=== PATIENT | male | born 2005 | race African-American/Black ===

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

== ENCOUNTER 2023-08-02 22:18 | Inpatient (IN) ==
[2023-08-02 22:58] LABS: Appearance Urine Clear (Clear); Bacteria Urine Automated Negative (Negative); Bilirubin Urine Negative (Negative); Blood Urine Negative (Negative); Color Urine Dark Yellow; Glucose Urine UA Negative (Negative); Ketones Urine Trace (Negative); Leukocyte Esterase Urine Negative (Negative); Nitrite Urine Negative (Negative); Protein Urine Trace (Negative); RBC Urine Automated 0-4 /hpf (0-4); Specific Gravity Urine 1.035 (1.000-1.030); Urobilinogen Urine Negative (Negative); pH Urine 5.5 (4.5-7.5)
[2023-08-02] MEDS ORDERED: LIDOCAINE 1% LOCAL 20 ML VIAL INFIL ONE (22:58)
[2023-08-02] MEDS ORDERED: LIDOCAINE 1% LOCAL 20 ML VIAL ONE (22:59)
[2023-08-02 23:05] LABS: Basophils # (auto) 0.02 K/uL (0.00-0.20); Basophils % (auto) 0.3 %; Eosinophils # (auto) 0.11 K/uL (0.00-0.50); Eosinophils % (auto) 1.8 %; Hematocrit (blood only) 38.7 % (42.0-52.0); Hemoglobin 12.9 g/dl (14.0-18.0); Immature Granulocytes # (auto) 0.01 K/uL (0.01-0.20); Immature Granulocytes % (auto) 0.2 %; Lymphocytes # (auto) 2.17 K/uL (1.20-3.40); Lymphocytes % (auto) 35.9 %; Mean Corpuscular Hemoglobin 28.7 pg (25.0-34.0); Mean Corpuscular Hgb Conc 33.3 g/dL (32.0-36.0); Mean Corpuscular Volume 86.2 fL (80.0-100.0); Mean Platelet Volume 9.5 fL (9.4-12.4); Monocytes # (auto) 0.76 K/uL (0.11-0.59); Monocytes % (auto) 12.6 %; Neutrophils # (auto) 2.98 K/uL (1.40-6.50); Neutrophils % (auto) 49.2 %; Platelet Count 320 K/uL (130-400); RDW Coefficient of Variation 12.2 % (11.5-14.5); RDW Standard Deviation 38.8 fL (36.4-46.3); Red Blood Count 4.49 M/uL (4.70-6.10); White Blood Count 6.05 K/ul (4.8-10.8)
--- NOTE | 2023-08-02 23:08 | Emergency Department Note ---
Impression & Plan Major depressive disorder with current active episode, Suicide attempt, Laceration of neck, Laceration of forearm, left ED Provider Note Name: KAREN MEADOWS Age: 18 Sex: M Arrives Via: Ambulance Informant: Patient, EMS, Nursing ED Provider: Lowell Vaughn MD Chief Complaint: Suicide attempt Impression: As per impressions above Medical Decision Makin-year-old male arrives following a suicide attempt. He plan this this evening even taking aspirin prior to cutting right neck and left wrist. Unable to cut deep enough and eventually EMS was called. Lacerations are somewhat gaping but not deep enough to cut below skin layers. There is no indication for CT imaging of the neck for deeper structure evaluation. Lacerations were repaired by me and I discussed the importance of wound management monitoring and then suture removal in about 7 days. Wounds are clean and thus I do not feel starting antibiotics are necessary at this time. He is medically cleared. Wagener level is low he did just start this a few days ago and they have been increasing the dose. He is agreeable to inpatient care on a 201 basis and is voluntary signing himself in. With this in mind 302 that had been started by police was declined with plan for voluntary inpatient management. Prior Medical Record and Triage/Nursing Notes reviewed by Me External chart reviewed by me including previous psychiatric hospital stays at this location. Differentials:Mood disorder, infection, hypoglycemia, electrolyte abnormalities, cardiac sources, intracerebral event, toxicologic, trauma, neurologic, as well as other pathologies. Vital Signs: reviewed and remarkable for no significant abnormalities Interventions: Lidocaine subcu for suturing Labs:Reviewed and remarkable for no significant abnormalities Consults:Mental Health Case Management - Agree with plan for hospitalization Plan: Disposition:Hospitalization on Condition: Good History of Present Illness:18-year-old male arrives for evaluation following a suicide attempt. Patient notes worsening depression and anxiety with diff iculties during classes in school. Patient attempted to kill himself this evening. He took 2 doses of full-strength aspirin and then used a razor to cut his right neck and left forearm. Patient denies other attempts at harming himself. EMS was contacted and he was brought in for further evaluation. No interventions prior to arrival. Patient did use his home Adderall prior to arrival. He denies any recent drug or alcohol use. Admits previous hospitalization including at this location for psychiatric disease. Denies any falls, trauma, injuries. Denies anyone else harming him. 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 From [facility]. Home Medications:Trazodone, Vyvanse, duloxetine, lithium, hydroxyzine Allergies:No known drug allergies Vitals:Blood Pressure: 118/70, Pulse 64, RR 18, T 36.9C, O2 98% on RA Physical Exam: GENERAL: Patient is sad appearing and in minimal distress. NECK: 2 cm laceration not through to fascia but is somewhat gapping with venous oozing bleeding, no hematoma, no surrounding crepitus/TTP. No evidence of pene tration of laceration when probbing and evaling. No masses appreciated, nomeningismus, trachea is midline. RESPIRATORY: No dyspnea. Clear to auscultation and equal bilaterally. No wheeze, no rhonchi. CARDIOVASCULAR: Regular rate and rhythm.No murmurs, rubs, gallops appreciated. EXTREMITIES: Normal motion all extremities, no cyanosis, no edema. NEUROLOGIC: Alert and oriented, no acute motor or sensory deficits, no focal weakness, cranial nerves grossly intact. SKIN: Left forearm laceration. Vertical laceration down mid forearm surrounding by smaller abrasions. Abrasion is not deep but is somewhat gapping as well. No active bleeding. Distal n/v intact. No rash, no jaundice, no diaphoresis. PSYCH: Appropriate GCS: 15 Procedures: Laceration Repair: Location: right neck Complexity: Simple Length: 2 cm Verbal consent was obtained after the risks and benefits were explained, including but not limited to bleeding, scarring, infection, pain, and bone/joint/nerve damage. At this time, the risks of the procedure are less than the risks of NOT performing the procedure. A time out was taken and the correct patient and site identified. The skin was prepped with betadine. The target area was anesthetized with 2 ml of 1% lidocaine without epinephrine. Copious irrigation was performed using betadine/saline. The skin was re-prepped with betadine and a sterile field set. The wound was explored for foreign bodies and none found. Examination revealed no injury to deep structures such as tendons, bone, or significant blood vessels. Debridement was not performed. The wound edges were approximated using 2, 4-0 simple interrupted nylon sutures. He mostasis and excellent approximation was achieved. Antibacterial ointment and a sterile dressing applied by nursing. Detailed wound care instructions and signs and symptoms of infection reviewed with the patient. No complications and the patient tolerated the procedure well. I personally performed the entire procedure. Laceration Repair: Location: vertical left forearm Complexity: Simple Length: 7 cm Verbal consent was obtained after the risks and benefits were explained, including but not limited to bleeding, scarring, infection, pain, and bone/joint/nerve damage. At this time, the risks of the procedure are less than the risks of NOT performing the procedure. A time out was taken and the correct patient and site identified. The skin was prepped with betadine. The target area was anesthetized with 5 ml of 1% lidocaine without epinephrine. Copious irrigation was performed using betadine/saline. The skin was re-prepped with betadine and a sterile field set. The wound was explored for foreign bodies and none found. Examination revealed no injury to deep structures such as tendons, bone, or significant blood vessels. Debridement was not performed. The wound e dges were approximated using 7, 4-0 simple interrupted nylon sutures. Hemostasis and excellent approximation was achieved. Antibacterial ointment and a sterile dressing applied by nursing. Detailed wound care instructions and signs and symptoms of infection reviewed with the patient. No complications and the patient tolerated the procedure well. I personally performed the entire procedure. Lowell Vaughn MD Past Med/Surg History Medical History Depression Depression with suicidal ideation Suicidal ideation Surgical History No pertinent past surgical history Social History Smoking Status: Unknown if ever smoked Hx Alcohol Use: No Hx Substance Use: No Preferred Language: Vietnamese Communication Ability: Effective General Internist Required: No Beliefs That Will Affect Care: None current occupational status: student Feels Safe at Home: Yes Gender Identity: Male Assistive Devices: None Allergies Allergies Allergy/AdvReac Type Severity Reaction Status Date / Time No Known Allergies Allergy Unverified 01/15/23 15:54 Home Meds Home Medications Medication Instructions Recorded Confirmed clonazepam 0.5 mg tablet 0.5 mg PO BID PRN Anxiety 08/02/23 08/02/23 dextroamphetamine-amphetamine ER 20 mg PO DAILY 08/02/23 08/02/23 20 mg 24hr capsule,extend release (Adderall XR) lithium carbonate 300 mg capsule 300 mg PO BID 08/02/23 08/02/23 mirtazapine 15 mg tablet 15 mg PO DAILY 08/02/23 08/02/23 vortioxetine 20 mg tablet 20 mg PO DAILY 08/02/23 08/02/23 (Trintellix) Results & Data (ED) Vital Signs Vital Signs - 24 hr 08/02/23 22:34 08/03/23 00:44 Temperature 36.9 C Temperature Source Oral Pulse Rate 64 Pulse Rate [Apical] 64 Pulse Rhythm [Apical] Regular Respiratory Rate 18 16 Respiratory Depth Normal Blood Pressure 118/70 Blood Pressure [Right Arm] 108/52 L Blood Pressure Mean 86 Blood Pressure Mean [Right Arm] 70 Pulse Oximetry 98 98 Oxygen Delivery Method Room Air Room Air Sepsis Recent Fever Within 48 Hours No Sepsis New/Unexplained Change in Mental Status No Sepsis Action Taken by Nursing No Action Required Laboratory Data 08/02/23 22:49 08/02/23 22:49 Lab Results 08/02/23 08/02/23 08/02/23 Range/Units 22:44 22:44 22:44 WBC (4.8-10.8) K/ul RBC (4.70-6.10) M/uL Hgb (14.0-18.0) g/dl Hct (42.0-52.0) % MCV (80.0-100.0) fL MCH (25.0-34.0) pg MCHC (32.0-36.0) g/dL RDW Std Deviation (36.4-46.3) fL RDW Coeff of Annika (11.5-14.5) % Plt Count (130-400) K/uL MPV (9.4-12.4) fL Immature Gran % (Auto) % Neut % (Auto) % Lymph % (Auto) % Logan % (Auto) % Eos % (Auto) % Baso % (Auto) % Neut # (Auto) (1.40-6.50) K/uL Lymph # (Auto) (1.20-3.40) K/uL Logan # (Auto) (0.11-0.59) K/uL Eos # (Auto) (0.00-0.50) K/uL Baso # (Auto) (0.00-0.20) K/uL Immature Gran # (Auto) (0.01-0.20) K/uL Sodium (136-145) mmol/L Potassium (3.5-5.1) mmol/L Chloride (98-107) mmol/L Carbon Dioxide (21-32) mmol/L Anion Gap (3-11) BUN (6-23) mg/dl Creatinine (0.6-1.4) mg/dl Est Cr Clr Drug Dosing ml/min Est GFR ( Amer) ml/min Est GFR (Non-Af Amer) ml/min BUN/Creatinine Ratio (10-20) Glucose (70-99(Fasting)) mg/dl Calcium (8.6-10.3) mg/dl Total Bilirubin (0.2-1.0) mg/dl AST (13-39) U/L ALT (7-52) U/L Alkaline Phosphatase (34-104) U/L Total Protein (6.0-8.3) gm/dl Albumin (3.4-5.0) gm/dl Globulin (2.5-4.0) gm/dl Albumin/Globulin Ratio (0.9-2) TSH (0.300-4.500) uIu/ml Urine Color Dark Yellow Urine Appearance Clear (Clear) Urine pH 5.5 (4.5-7.5) Ur Specific Crowell 1.035 H (1.000-1.030) Urine Protein Trace H (Negative) Urine Glucose (UA) Negative (Negative) Urine Ketones Trace H (Negative) Urine Blood Negative (Negative) Urine Nitrite Negative (Negative) Urine Bilirubin Negative (Negative) Urine Urobilinogen Negative (Negative) Ur Leukocyte Esterase Negative (Negative) Urine WBC (Auto) 1-5 (0-5) /hpf Urine RBC (Auto) 0-4 (0-4) /hpf U Hyaline Cast (Auto) 1-5 (0-5) /lpf U Epithel Cells (Auto) 5-10 H (0-5) /lpf Urine Bacteria (Auto) Negative (Negative) Salicylates (3.0-30) mg/dl Urine Opiates Screen Neg (Neg) Ur Methadone, Qual Neg (Neg) Acetaminophen (10-30) ug/ml Urine Barbiturates Neg (Neg) Ur Phencyclidine (PCP) Neg (Neg) U Amphetamin/Meth Scrn Pos H (Neg) MDMA (Ecstasy) Screen Neg (Neg) U Benzodiazepines Scrn Neg (Neg) Wagener (0.6-1.2) mmol/L Ur Cocaine Metabolite Neg (Neg) U Marijuana (THC) Screen Neg (Neg) Ethyl Alcohol mg/dL (<10.0) mg/dl SARS-CoV-2, RNA, NAAT NEGATIVE (NEGATIVE) 08/02/23 08/02/23 08/02/23 Range/Units 22:49 22:49 22:49 WBC 6.05 (4.8-10.8) K/ul RBC 4.49 L (4.70-6.10) M/uL Hgb 12.9 L (14.0-18.0) g/dl Hct 38.7 L (42.0-52.0) % MCV 86.2 (80.0-100.0) fL MCH 28.7 (25.0-34.0) pg MCHC 33.3 (32.0-36.0) g/dL RDW Std Deviation 38.8 (36.4-46.3) fL RDW Coeff of Annika 12.2 (11.5-14.5) % Plt Count 320 (130-400) K/uL MPV 9.5 (9.4-12.4) fL Immature Gran % (Auto) 0.2 % Neut % (Auto) 49.2 % Lymph % (Auto) 35.9 % Logan % (Auto) 12.6 % Eos % (Auto) 1.8 % Baso % (Auto) 0.3 % Neut # (Auto) 2.98 (1.40-6.50) K/uL Lymph # (Auto) 2.17 (1.20-3.40) K/uL Logan # (Auto) 0.76 H (0.11-0.59) K/uL Eos # (Auto) 0.11 (0.00-0.50) K/uL Baso # (Auto) 0.02 (0.00-0.20) K/uL Immature Gran # (Auto) 0.01 (0.01-0.20) K/uL Sodium 140 (136-145) mmol/L Potassium 3.5 (3.5-5.1) mmol/L Chloride 108 H (98-107) mmol/L Carbon Dioxide 26 (21-32) mmol/L Anion Gap 6 (3-11) BUN 10 (6-23) mg/dl Creatinine 0.82 (0.6-1.4) mg/dl Est Cr Clr Drug Dosing 175.0 ml/min Est GFR ( Amer) 147.5 ml/min Est GFR (Non-Af Amer) 127.3 ml/min BUN/Creatinine Ratio 12.2 (10-20) Glucose 84 (70-99(Fasting)) mg/dl Calcium 9.9 (8.6-10.3) mg/dl Total Bilirubin 0.3 (0.2-1.0) mg/dl AST 25 (13-39) U/L ALT 19 (7-52) U/L Alkaline Phosphatase 166 H (34-104) U/L Total Protein 7.9 (6.0-8.3) gm/dl Albumin 4.5 (3.4-5.0) gm/dl Globulin 3.4 (2.5-4.0) gm/dl Albumin/Globulin Ratio 1.3 (0.9-2) TSH 1.065 (0.300-4.500) uIu/ml Urine Color Urine Appearance (Clear) Urine pH (4.5-7.5) Ur Specific Crowell (1.000-1.030) Urine Protein (Negative) Urine Glucose (UA) (Negative) Urine Ketones (Negative) Urine Blood (Negative) Urine Nitrite (Negative) Urine Bilirubin (Negative) Urine Urobilinogen (Negative) Ur Leukocyte Esterase (Negative) Urine WBC (Auto) (0-5) /hpf Urine RBC (Auto) (0-4) /hpf U Hyaline Cast (Auto) (0-5) /lpf U Epithel Cells (Auto) (0-5) /lpf Urine Bacteria (Auto) (Negative) Salicylates < 3.0 L (3.0-30) mg/dl Urine Opiates Screen (Neg) Ur Methadone, Qual (Neg) Acetaminophen 8 L (10-30) ug/ml Urine Barbiturates (Neg) Ur Phencyclidine (PCP) (Neg) U Amphetamin/Meth Scrn (Neg) MDMA (Ecstasy) Screen (Neg) U Benzodiazepines Scrn (Neg) Wagener 0.1 L (0.6-1.2) mmol/L Ur Cocaine Metabolite (Neg) U Marijuana (THC) Screen (Neg) Ethyl Alcohol mg/dL (<10.0) mg/dl SARS-CoV-2, RNA, NAAT (NEGATIVE) 08/02/23 Range/Units 22:49 WBC (4.8-10.8) K/ul RBC (4.70-6.10) M/uL Hgb (14.0-18.0) g/dl Hct (42.0-52.0) % MCV (80.0-100.0) fL MCH (25.0-34.0) pg MCHC (32.0-36.0) g/dL RDW Std Deviation (36.4-46.3) fL RDW Coeff of Annika (11.5-14.5) % Plt Count (130-400) K/uL MPV (9.4-12.4) fL Immature Gran % (Auto) % Neut % (Auto) % Lymph % (Auto) % Logan % (Auto) % Eos % (Auto) % Baso % (Auto) % Neut # (Auto) (1.40-6.50) K/uL Lymph # (Auto) (1.20-3.40) K/uL Logan # (Auto) (0.11-0.59) K/uL Eos # (Auto) (0.00-0.50) K/uL Baso # (Auto) (0.00-0.20) K/uL Immature Gran # (Auto) (0.01-0.20) K/uL Sodium (136-145) mmol/L Potassium (3.5-5.1) mmol/L Chloride (98-107) mmol/L Carbon Dioxide (21-32) mmol/L Anion Gap (3-11) BUN (6-23) mg/dl Creatinine (0.6-1.4) mg/dl Est Cr Clr Drug Dosing ml/min Est GFR ( Amer) ml/min Est GFR (Non-Af Amer) ml/min BUN/Creatinine Ratio (10-20) Glucose (70-99(Fasting)) mg/dl Calcium (8.6-10.3) mg/dl Total Bilirubin (0.2-1.0) mg/dl AST (13-39) U/L ALT (7-52) U/L Alkaline Phosphatase (34-104) U/L Total Protein (6.0-8.3) gm/dl Albumin (3.4-5.0) gm/dl Globulin (2.5-4.0) gm/dl Albumin/Globulin Ratio (0.9-2) TSH (0.300-4.500) uIu/ml Urine Color Urine Appearance (Clear) Urine pH (4.5-7.5) Ur Specific Crowell (1.000-1.030) Urine Protein (Negative) Urine Glucose (UA) (Negative) Urine Ketones (Negative) Urine Blood (Negative) Urine Nitrite (Negative) Urine Bilirubin (Negative) Urine Urobilinogen (Negative) Ur Leukocyte Esterase (Negative) Urine WBC (Auto) (0-5) /hpf Urine RBC (Auto) (0-4) /hpf U Hyaline Cast (Auto) (0-5) /lpf U Epithel Cells (Auto) (0-5) /lpf Urine Bacteria (Auto) (Negative) Salicylates (3.0-30) mg/dl Urine Opiates Screen (Neg) Ur Methadone, Qual (Neg) Acetaminophen (10-30) ug/ml Urine Barbiturates (Neg) Ur Phencyclidine (PCP) (Neg) U Amphetamin/Meth Scrn (Neg) MDMA (Ecstasy) Screen (Neg) U Benzodiazepines Scrn (Neg) Wagener (0.6-1.2) mmol/L Ur Cocaine Metabolite (Neg) U Marijuana (THC) Screen (Neg) Ethyl Alcohol mg/dL < 10.0 (<10.0) mg/dl SARS-CoV-2, RNA, NAAT (NEGATIVE) Discharge Plan Visit Data Chief Complaint: Laceration/Cut (Suture/Dermabond) Stated Complaint: Mental Health/Lac to neck/wrist ED Provider: Lowell Vaughn Discharge Problem: Major depressive disorder with current active episode, Suicide attempt, Laceration of neck, Laceration of forearm, left Patient Disposition: Admitted As Inpatient Discharge Instructions Interventions: ED Discharge Assessment Last Done: 08/03/23 01:27 Major depressive disorder with current active episode Qualifiers: Major depression recurrence: recurrent Major depression episode severity: severe Psychotic features: without psychotic features Qualified Code(s): F33.2 - Major depressive disorder, recurrent severe without psychotic features Laceration of neck Qualifiers: Encounter type: initial encounter Qualified Code(s): S11.91XA - Laceration without foreign body of unspecified part of neck, initial encounter Laceration of forearm, left Qualifiers: Encounter type: initial encounter Qualified Code(s): S51.812A - Laceration without foreign body of left forearm, initial encounter
[2023-08-02 23:20] LABS: Albumin Globulin Ratio 1.3 (0.9-2); Albumin Level 4.5 gm/dl (3.4-5.0); BUN Creatinine Ratio 12.2 (10-20); Bilirubin,Total 0.3 mg/dl (0.2-1.0); Calcium 9.9 mg/dl (8.6-10.3); Est GFR (African American) 147.5 ml/min; Est GFR (Non-African American) 127.3 ml/min; Globulin 3.4 gm/dl (2.5-4.0); Potassium 3.5 mmol/L (3.5-5.1); Total Protein 7.9 gm/dl (6.0-8.3)
[2023-08-02 23:23] LABS: Lithium 0.1 mmol/L (0.6-1.2)
[2023-08-02 23:24] LABS: Amphetamines+Metham, Urine Pos (Neg); Barbiturates, Urine Neg (Neg); Benzodiazepine, Urine Neg (Neg); Cocaine, Urine Neg (Neg); MDMA (Ecstacy), Urine Neg (Neg); Methadone, Urine Neg (Neg); Opiate, Urine Neg (Neg); Phencyclidine, Urine Neg (Neg)
[2023-08-02 23:50] LABS: Thyroid Stimulating Hormone 1.065 uIu/ml (0.300-4.500)
[2023-08-02 23:54] LABS: Acetaminophen 8 ug/ml (10-30); Salicylate < 3.0 mg/dl (3.0-30)
[2023-08-03] MEDS ORDERED: SODIUM CHLORIDE 0.65% NA SOLN 45 ML (OCEAN) PRN (01:50)
[2023-08-03] MEDS ORDERED: ACETAMINOPHEN 325 MG TAB PO PRN (01:50)
[2023-08-03] MEDS ORDERED: BISMUTH SUBSALICYLATE LIQD 236 ML PO PRN (01:50)
[2023-08-03] MEDS ORDERED: ALUMINUM/MAGNESIUM SUSP 30 ML UDC PO PRN (01:50)
[2023-08-03] MEDS ORDERED: MAGNESIUM HYDROXIDE SUSP 30 ML UDC PO PRN (01:50)
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
[2023-08-03] MEDS: LITHIUM CARBONATE 300 MG TAB PO SCH (20:45)
[2023-08-03] MEDS: MIRTAZAPINE TAB 15 MG TAB PO SCH (20:45)
[2023-08-04] MEDS: AMPHETAMINE ASP/SULF/DEXTRAMPH ER 20 MG CAP PO SCH (09:04)
[2023-08-04] MEDS: LITHIUM CARBONATE 300 MG TAB PO SCH ×2 (09:05→20:58)
[2023-08-04] MEDS: CEROVITE ADV FORMULA TAB PO SCH (09:05)
--- NOTE | 2023-08-04 09:21 | Psychiatric Progress Note ---
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 Diagnostically consistent with likely acute exacerbation of major depressive disorder with anxious distress versus BPAD type II current depressive episode versus persistent depressive disorder versus BPD with chronic SI/self-harm and co- morbid ADHD and possible recent worsening of DOUG with panic attacks. Similar to his previous inpatient psychiatric admissions he has limited insight into possible stressors or precipitating factors to his attempt and feels worthless, hopelessness and is very socially isolated. He is deemed in need of psychiatric hospitalization for diagnostic clarification, safety and stabilization, medication management and development of further coping skills. 08/04/2023: Ongoing severe depression and hopelessness and SI. Increased distress and self-harm after phone call with his mother. Reviewed collateral information from his outpatient psychiatric provider-they are attempting prior auth for [employer]. Reviewed mood disorder questionnaire which suggests possible history of hypomania and BPAD type II. BPD screen positive for some classic features including chronic emptiness, lack of identity and self-harm. Reviewed DBT which he would be willing to try. He consents to increasing [place] to target BPAD type II and depression Overall, I spent a total of 60 minutes with this case including review of chart records, direct evaluation of the patient at bedside, counseling the patient, discussion during interdisciplinary treatment rounds, risk assessment, and documentation in the electronic health record. (1) Suicide attempt: (2) Laceration of neck: (3) Major depressive disorder with current active episode: (4) ADHD: (5) Generalized anxiety disorder with panic attacks: Plan 08/04/2023: -Increase [place] to 300mg qd and 600mg HS 08/03/2023: The patient was admitted to the [facility] ([facility] inpatient mental health unit) on q15 min checks (behavioral with suicide precautions) for safety. The patient will participate in group, recreational, and milieu therapies and will be offered additional individual and family sessions as clinically appropriate. -Continue mirtazapine 15mg HS, Adderall XR 20mg daily, [place] 300mg BID -[place] BPD questionnaire -Mood Disorder questionnaire -Will reach out to his outpatient psychiatric provider for further recent collateral -Suture removal in approximately 7 days Inventory Assets Strengths: willing to get treatment, academically driven Needs: safety and stabilization, medication adjustment, additional coping skills, increased outpatient services Suicide Risk Level Suicide Risk Level: High-Moderate (q15 min suicide checks) (severe depression with SI with plan prior to admission but feels safe in the hospital, able to safety contract and agrees to let nursing/staff know should they develop plan, intent or feel unable to remain safe. 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 Chief Complaint "My mom really stresses me out". Review of Systems Sleep Information Total Hours of Sleep: 5.75 Sleep Comments: Meal Information Percent Meal Consumed - Breakfast: 100 Percent Meal Consumed - Lunch: 100 Percent Meal Consumed - Dinner: 100 Subjective Subjective Patient was seen & assessed and interval progress reviewed with treatment team n keyur and social work. Attended groups last evening, expressed regret at reaching out for help after his suicide attempt, also discussed past trauma. Used quiet room after starting to self-harm via banging his head following phone call with his mom. Expresses 10/10 wish to and 0/10 wish to live. Lists multiple reasons to including significant hopelessness and no reasons to live. Physical Exam Psychiatric Orientation: alert and oriented x 3 Apperance: appropriately dressed and appropriately groomed Eye Contact: + poor eye contact (looks down) Motor Behavior: no abnormal motor movements Speech: + abnormal rate/rhythm/volume of speech (very soft) Affect: + depressed affect and + flat affect Mood: + depressed mood and + anxious mood Thought Process: + concrete thought process Thought Content: reality based without delusions Suicidal Thoughts: denies suicidal intent; + reports suicidal thoughts and + reports suicidal plan (none for hospital, to cut himself outside of hospital) Homicidal Thoughts: denies homicidal thoughts Hallucinations: no auditory hallucinations and no visual hallucinations Cognition: recent memory grossly intact, remote memory grossly intact, attention grossly intact and language grossly intact Estimated Intelligence: consistent with education level Insight: + limited insight Judgment: + limited judgement Vital Signs (Past 24 Hours) Last Vital Signs Temp 36.7 C 08/04/23 06:31 Pulse 71 08/04/23 06:31 Resp 16 08/04/23 06:31 BP 110/73 08/04/23 06:31 Pulse Ox 98 08/03/23 00:44 O2 Del Method Room Air 08/03/23 00:44 Results & Data ([facility]) Current Inpatient Medications Current Inpatient Medications: Current Inpatient Medications Acetaminophen (Acetaminophen 325 Mg Tab) 650 mg PO Q4H PRN PRN Reason: Headache or Minor Fever Stop: 09/02/23 01:49 Al Hydrox/Mg Hydrox/Simethicone (Aluminum/Magnesium Susp 30 Ml Udc) 30 ml PO Q4H PRN PRN Reason: GI Upset Stop: 09/02/23 01:49 Amphetamine/Dextroamphetamine (Amphetamine Asp/Sulf/Dextramph Er 20 Mg Cap) 20 mg PO DAILY JOSÉ ANTONIO Stop: 08/18/23 08:59 Last Admin: 08/04/23 09:04 Dose: 20 mg Bismuth Subsalicylate (Bismuth Subsalicylate Liqd 236 Ml) 15 ml PO PRN PRN PRN Reason: Loose Stool Stop: 09/02/23 01:49 Hydroxyzine HCl (Hydroxyzine Hcl 25 Mg Tab) 50 mg PO HSZ PRN PRN Reason: Insomnia Stop: 09/02/23 01:49 Hydroxyzine HCl (Hydroxyzine Hcl 25 Mg Tab) 25 mg PO Q4H PRN PRN Reason: Anxiety Stop: 09/02/23 01:49 [place] Carbonate ([place] Carbonate 300 Mg Tab) 300 mg PO BID JOSÉ ANTONIO Stop: 09/02/23 20:59 Last Admin: 08/04/23 09:05 Dose: 300 mg Magnesium Hydroxide (Magnesium Hydroxide Susp 30 Ml Udc) 30 ml PO DAILY PRN PRN Reason: Constipation Stop: 09/02/23 01:49 Mirtazapine (Mirtazapine Tab 15 Mg Tab) 15 mg PO HS JOSÉ ANTONIO Stop: 09/02/23 21:59 Last Admin: 08/03/23 20:45 Dose: 15 mg Multivitamins/Minerals (Cerovite Adv Formula Tab) 1 tab PO QAM JOSÉ ANTONIO Stop: 09/03/23 08:59 Last Admin: 08/04/23 09:05 Dose: 1 tab Sodium Chloride (Sodium Chloride 0.65% Na Soln 45 Ml ([place])) 1 - 2 sprays NA PRN PRN PRN Reason: Nasal Dryness/Congestion Stop: 09/02/23 01:49 Mental Health & Subst Abuse Tx Therapist Name of Therapist: Favian Willard Scouring Train Operator Name of Scouring Train Operator: [facility] [employer] Adv[facility] Post Discharge Appointments Primary Care Physician Name Of Family Doctor/PCP: BONNIE (2) Laceration of neck Encounter type: initial encounter Qualified Code(s): S11.91XA - Laceration without foreign body of unspecified part of neck, initial encounter (3) Major depressive disorder with current active episode Major depression episode severity: severe Major depression recurrence: recurrent Psychotic features: without psychotic features Qualified Code(s): F33.2 - Major depressive disorder, recurrent severe without psychotic features
[2023-08-04] MEDS: hydrOXYzine HCl 25 MG TAB PO PRN (14:16)
[2023-08-04] MEDS: MIRTAZAPINE TAB 15 MG TAB PO SCH (20:57)
[2023-08-05 06:12] LABS: Amphetamine Urine, Confirm >15000 ng/mL (<250); Methamphetamine, Ur Confirm NEGATIVE ng/mL (<250)
[2023-08-05] MEDS: LITHIUM CARBONATE 300 MG TAB PO SCH ×2 (09:02→21:19)
[2023-08-05] MEDS: AMPHETAMINE ASP/SULF/DEXTRAMPH ER 20 MG CAP PO SCH (09:02)
[2023-08-05] MEDS: CEROVITE ADV FORMULA TAB PO SCH (09:03)
--- NOTE | 2023-08-05 09:05 | Psychiatric Progress Note ---
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 Diagnostically consistent with likely acute exacerbation of major depressive disorder with anxious distress versus BPAD type II current depressive episode versus persistent depressive disorder versus BPD with chronic SI/self-harm and co- morbid ADHD and possible recent worsening of DOUG with panic attacks. Similar to his previous inpatient psychiatric admissions he has limited insight into possible stressors or precipitating factors to his attempt and feels worthless, hopelessness and is very socially isolated. He is deemed in need of psychiatric hospitalization for diagnostic clarification, safety and stabilization, medication management and development of further coping skills. 08/05/2023: Ongoing severe depression and hopelessness and SI. Tolerating increased [place] dose last night. Consents to trial of higher dose of Adderall for stimulant effect in effort to boost mood, will monitor for potential wors ening of anxiety. Overall, I spent a total of 45 minutes with this case including review of chart records, direct evaluation of the patient at bedside, counseling the patient, discussion during interdisciplinary treatment rounds, risk assessment, and documentation in the electronic health record. (1) Suicide attempt: (2) Laceration of neck: (3) Major depressive disorder with current active episode: (4) ADHD: (5) Generalized anxiety disorder with panic attacks: Plan 08/05/2023: -Increase Adderall XR to 40mg tomorrow morning 08/04/2023: -Increase [place] to 300mg qd and 600mg HS 08/03/2023: The patient was admitted to the [facility] ([facility] mental health unit) on q15 min checks (behavioral with suicide precautions) for safety. The patient will participate in group, recreational, and milieu therapies and will be offered additional individual and family sessions as clinically appropriate. -Continue mirtazapine 15mg HS, Adderall XR 20mg daily, [place] 300mg BID -[place] BPD questionnaire -Mood Disorder questionnaire -Will reach out to his outpatient psychiatric provider for further recent collateral -Suture removal in approximately 7 days Inventory Assets Strengths: willing to get treatment, academically driven Needs: safety and stabilization, medication adjustment, additional coping skills, increased outpatient services Suicide Risk Level Suicide Risk Level: High-Moderate (q15 min suicide checks) (severe depression with SI with plan prior to admission but feels safe in the hospital, able to safety contract and agrees to let nursing/staff know should they develop plan, intent or feel unable to remain safe. 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 who currently lives on campus, has a history of major depressive disorder, chronic intermittent SI, ADHD and was admitted on 08/03/23 01:11 on a 201 voluntary commitment for suicide attempt via ingestion of aspirin and self-inflicted lacerations to his neck and wrist requiring 7 sutures in an effort to bleed to . Chief Complaint "I feel the same". Review of Systems Sleep Information Total Hours of Sleep: 6.5 Meal Information Percent Meal Consumed - Breakfast: 100 Percent Meal Consumed - Lunch: 0 Percent Meal Consumed - Dinner: 100 Nutrition Comment: pt. declines lunch; meal is dated, labeled and refrigerated. Subjective Subjective Patient was seen & assessed and interval progress reviewed with treatment team nursing and social work. Last evening reported his mood as "1" and "despair". Continues to have severe depression and hopelessness. No side effects from higher Li dose. Physical Exam Psychiatric Orientation: alert and oriented x 3 Apperance: appropriately dressed and appropriately groomed Eye Contact: + fair eye contact Motor Behavior: no abnormal motor movements Speech: + abnormal rate/rhythm/volume of speech (very soft) Affect: + depressed affect and + flat affect Mood: + depressed mood and + anxious mood Thought Process: + concrete thought process Thought Content: reality based without delusions Suicidal Thoughts: denies suicidal intent; + reports suicidal thoughts and + reports suicidal plan (none for hospital, to cut himself outside of hospital) Homicidal Thoughts: denies homicidal thoughts Hallucinations: no auditory hallucinations and no visual hallucinations Cognition: recent memory grossly intact, remote memory grossly intact, attention grossly intact and language grossly intact Estimated Intelligence: consistent with education level Insight: + limited insight Judgment: + limited judgement Vital Signs (Past 24 Hours) Last Vital Signs Temp 37 C 08/05/23 06:34 Pulse 76 08/05/23 06:35 Resp 16 08/05/23 06:34 BP 104/64 08/05/23 06:35 Pulse Ox 98 08/03/23 00:44 O2 Del Method Room Air 08/03/23 00:44 Results & Data ([facility]) Laboratory Results Laboratory Results - last 24 hr 08/02/23 22:44 U Amphetamines Confirm >[id number] H U Methamphetamin Confrm NEGATIVE Drug Screen Comment SEE NOTE Current Inpatient Medications Current Inpatient Medications: Current Inpatient Medications Acetaminophen (Acetaminophen 325 Mg Tab) 650 mg PO Q4H PRN PRN Reason: Headache or Minor Fever Stop: 09/02/23 01:49 Al Hydrox/Mg Hydrox/Simethicone (Aluminum/Magnesium Susp 30 Ml Udc) 30 ml PO Q4H PRN PRN Reason: GI Upset Stop: 09/02/23 01:49 Amphetamine/Dextroamphetamine (Amphetamine Asp/Sulf/Dextramph Er 20 Mg Cap) 20 mg PO DAILY JOSÉ ANTONIO Stop: 08/18/23 08:59 Last Admin: 08/04/23 09:04 Dose: 20 mg Bismuth Subsalicylate (Bismuth Subsalicylate Liqd 236 Ml) 15 ml PO PRN PRN PRN Reason: Loose Stool Stop: 09/02/23 01:49 Hydroxyzine HCl (Hydroxyzine Hcl 25 Mg Tab) 50 mg PO HSZ PRN PRN Reason: Insomnia Stop: 09/02/23 01:49 Hydroxyzine HCl (Hydroxyzine Hcl 25 Mg Tab) 25 mg PO Q4H PRN PRN Reason: Anxiety Stop: 09/02/23 01:49 Last Admin: 08/04/23 14:16 Dose: 25 mg [place] Carbonate ([place] Carbonate 300 Mg Tab) 300 mg PO QD@08 JOSÉ ANTONIO Stop: 09/04/23 07:59 [place] Carbonate ([place] Carbonate 300 Mg Tab) 600 mg PO HS JOSÉ ANTONIO Stop: 09/03/23 21:59 Last Admin: 08/04/23 20:58 Dose: 600 mg Magnesium Hydroxide (Magnesium Hydroxide Susp 30 Ml Udc) 30 ml PO DAILY PRN PRN Reason: Constipation Stop: 09/02/23 01:49 Mirtazapine (Mirtazapine Tab 15 Mg Tab) 15 mg PO HS JOSÉ ANTONIO Stop: 09/02/23 21:59 Last Admin: 08/04/23 20:57 Dose: 15 mg Multivitamins/Minerals (Cerovite Adv Formula Tab) 1 tab PO QAM JOSÉ ANTONIO Stop: 09/03/23 08:59 Last Admin: 08/04/23 09:05 Dose: 1 tab Sodium Chloride (Sodium Chloride 0.65% Na Soln 45 Ml ([place])) 1 - 2 sprays NA PRN PRN PRN Reason: Nasal Dryness/Congestion Stop: 09/02/23 01:49 Mental Health & Subst Abuse Tx Therapist Name of Therapist: Favian Willard Lmsw Name of Lmsw: [employer] [facility] [employer] Post Discharge Appointments Primary Care Physician Name Of Family Doctor/PCP: BONNIE (2) Laceration of neck Encounter type: initial encounter Qualified Code(s): S11.91XA - Laceration without foreign body of unspecified part of neck, initial encounter (3) Major depressive disorder with current active episode Major depression episode severity: severe Major depression recurrence: recurrent Psychotic features: without psychotic features Qualified Code(s): F33.2 - Major depressive disorder, recurrent severe without psychotic features
[2023-08-05] MEDS: MIRTAZAPINE TAB 15 MG TAB PO SCH (21:19)
[2023-08-06] MEDS: LITHIUM CARBONATE 300 MG TAB PO SCH ×2 (08:47→21:03)
[2023-08-06] MEDS: CEROVITE ADV FORMULA TAB PO SCH (08:47)
[2023-08-06] MEDS: AMPHETAMINE ASP/SULF/DEXTRAMPH ER 20 MG CAP PO SCH (08:49)
--- NOTE | 2023-08-06 09:03 | Psychiatric Progress Note ---
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 Diagnostically consistent with likely acute exacerbation of major depressive disorder with anxious distress versus BPAD type II current depressive episode versus persistent depressive disorder versus BPD with chronic SI/self-harm and co- morbid ADHD and possible recent worsening of DOUG with panic attacks. Similar to his previous inpatient psychiatric admissions he has limited insight into possible stressors or precipitating factors to his attempt and feels worthless, hopelessness and is very socially isolated. He is deemed in need of psychiatric hospitalization for diagnostic clarification, safety and stabilization, medication management and development of further coping skills. 08/06/2023: Ongoing severe depression and hopelessness and SI. Some decreased appetite with Adderall XR. Significant time spent exploring possible sources of meaning in his life or opportunities to build hopefulness but he feels there is nothing to live for currently. Overall, I spent a total of 50 minutes with this case including review of chart records, direct evaluation of the patient at bedside, counseling the patient, di scussion during interdisciplinary treatment rounds, risk assessment, and documentation in the electronic health record. (1) Suicide attempt: (2) Laceration of neck: (3) Major depressive disorder with current active episode: (4) ADHD: (5) Generalized anxiety disorder with panic attacks: Plan 08/06/2023: -Continue current medications and tx plan. 08/05/2023: -Increase Adderall XR to 40mg tomorrow morning 08/04/2023: -Increase [place] to 300mg qd and 600mg HS (recheck Li level in 5 days) 08/03/2023: The patient was admitted to the [facility] ([facility] inpatient mental health unit) on q15 min checks (behavioral with suicide precautions) for safety. The patient will participate in group, recreational, and milieu therapies and will be offered additional individual and family sessions as clinically appropriate. -Continue mirtazapine 15mg HS, Adderall XR 20mg daily, [place] 300mg BID -[place] BPD questionnaire -Mood Disorder questionnaire -Will reach out to his outpatient psychiatric provider for further recent collateral -Suture removal in approximately 7 days Inventory Assets Strengths: willing to get treatment, academically driven Needs: safety and stabilization, medication adjustment, additional coping skills, increased outpatient services Suicide Risk Level Suicide Risk Level: High-Moderate (q15 min suicide checks) (severe depression wi th SI with plan prior to admission but feels safe in the hospital, able to safety contract and agrees to let nursing/staff know should they develop plan, intent or feel unable to remain safe. 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 Chief Complaint "the same". Review of Systems Sleep Information Total Hours of Sleep: 7 Meal Information Percent Meal Consumed - Breakfast: 100 Percent Meal Consumed - Lunch: 95 Percent Meal Consumed - Dinner: 100 Nutrition Comment: Subjective Subjective Patient was seen & assessed and interval progress reviewed with treatment team nursing and social work. Still reporting being very depressed and hopeless in groups but brighter with peers. Continues to feel his life is meaningless. Tearful at times discussing his level of hopelessness. Cannot think of any reasons for living, just ways to outside of the hospital. Re-confirmed that he feels safe in the hospital and he continues to feel he can and will go to staff if he feels unable to remain safe. He didn't notice much change with higher dose of Adderall except decreased appetite. Physical Exam Psychiatric Orientation: alert and oriented x 3 Apperance: appropriately dressed and appropriately groomed Eye Contact: + fair eye contact Motor Behavior: no abnormal motor movements Speech: + abnormal rate/rhythm/volume of speech (very soft) Affect: + depressed affect, + flat affect and + tearful affect Mood: + depressed mood and + anxious mood Thought Process: + concrete thought process Thought Content: reality based without delusions Suicidal Thoughts: denies suicidal intent; + reports suicidal thoughts and + reports suicidal plan (none for hospital, to cut himself outside of hospital) Homicidal Thoughts: denies homicidal thoughts Hallucinations: no auditory hallucinations and no visual hallucinations Cognition: recent memory grossly intact, remote memory grossly intact, attention grossly intact and language grossly intact Estimated Intelligence: consistent with education level Insight: + limited insight Judgment: + limited judgement Vital Signs (Past 24 Hours) Last Vital Signs Temp 36.6 C 08/06/23 06:28 Pulse 73 08/06/23 06:28 Resp 12 08/06/23 06:28 BP 110/62 08/06/23 06:30 Pulse Ox 98 08/06/23 06:28 O2 Del Method Room Air 08/06/23 06:28 Results & Data ([facility]) Current Inpatient Medications Current Inpatient Medications: Current Inpatient Medications Acetaminophen (Acetaminophen 325 Mg Tab) 650 mg PO Q4H PRN PRN Reason: Headache or Minor Fever Stop: 09/02/23 01:49 Al Hydrox/Mg Hydrox/Simethicone (Aluminum/Magnesium Susp 30 Ml Udc) 30 ml PO Q4H PRN PRN Reason: GI Upset Stop: 09/02/23 01:49 Amphetamine/Dextroamphetamine (Amphetamine Asp/Sulf/Dextramph Er 20 Mg Cap) 40 mg PO DAILY JOSÉ ANTONIO Stop: 08/20/23 08:59 Last Admin: 08/06/23 08:49 Dose: 40 mg Bismuth Subsalicylate (Bismuth Subsalicylate Liqd 236 Ml) 15 ml PO PRN PRN PRN Reason: Loose Stool Stop: 09/02/23 01:49 Hydroxyzine HCl (Hydroxyzine Hcl 25 Mg Tab) 50 mg PO HSZ PRN PRN Reason: Insomnia Stop: 09/02/23 01:49 Hydroxyzine HCl (Hydroxyzine Hcl 25 Mg Tab) 25 mg PO Q4H PRN PRN Reason: Anxiety Stop: 09/02/23 01:49 Last Admin: 08/04/23 14:16 Dose: 25 mg [place] Carbonate ([place] Carbonate 300 Mg Tab) 300 mg PO QD@08 JOSÉ ANTONIO Stop: 09/04/23 07:59 Last Admin: 08/06/23 08:47 Dose: 300 mg [place] Carbonate ([place] Carbonate 300 Mg Tab) 600 mg PO HS JOSÉ ANTONIO Stop: 09/03/23 21:59 Last Admin: 08/05/23 21:19 Dose: 600 mg Magnesium Hydroxide (Magnesium Hydroxide Susp 30 Ml Udc) 30 ml PO DAILY PRN PRN Reason: Constipation Stop: 09/02/23 01:49 Mirtazapine (Mirtazapine Tab 15 Mg Tab) 15 mg PO HS JOSÉ ANTONIO Stop: 09/02/23 21:59 Last Admin: 08/05/23 21:19 Dose: 15 mg Multivitamins/Minerals (Cerovite Adv Formula Tab) 1 tab PO QAM JOSÉ ANTONIO Stop: 09/03/23 08:59 Last Admin: 08/06/23 08:47 Dose: 1 tab Sodium Chloride (Sodium Chloride 0.65% Na Soln 45 Ml ([place])) 1 - 2 sprays NA PRN PRN PRN Reason: Nasal Dryness/Congestion Stop: 09/02/23 01:49 Mental Health & Subst Abuse Tx Therapist Name of Therapist: Favian Willard Ampoule Filler And Sealer Name of Ampoule Filler And Sealer: Student Care [employer] Advocacy Post Discharge Appointments Primary Care Physician Name Of Family Doctor/PCP: BONNIE (2) Laceration of neck Encounter type: initial encounter Qualified Code(s): S11.91XA - Laceration without foreign body of unspecified part of neck, initial encounter (3) Major depressive disorder with current active episode Major depression episode severity: severe Major depression recurrence: recurrent Psychotic features: without psychotic features Qualified Code(s): F33.2 - Major depressive disorder, recurrent severe without psychotic features
[2023-08-06] MEDS: MIRTAZAPINE TAB 15 MG TAB PO SCH (21:03)
--- NOTE | 2023-08-07 08:49 | Psychiatric Progress Note ---
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 Diagnostically consistent with likely acute exacerbation of major depressive disorder with anxious distress versus BPAD type II current depressive episode versus persistent depressive disorder versus BPD with chronic SI/self-harm and co- morbid ADHD and possible recent worsening of DOUG with panic attacks. Similar to his previous inpatient psychiatric admissions he has limited insight into possible stressors or precipitating factors to his attempt and feels worthless, hopelessness and is very socially isolated. He is deemed in need of psychiatric hospitalization for diagnostic clarification, safety and stabilization, medication management and development of further coping skills. MNPR due to recent self-harm, visible self-harm markings, discusses self-harming with peers 08/07/2023: Ongoing severe depression and hopelessness and SI. Tolerating medication adjustments and showing some motivation today in learning more about DBT and BPD. Overall, I spent a total of 35 minutes with this case including review of chart records, direct evaluation of the patient at bedside, counseling the patient, discussion during interdisciplinary treatment rounds, risk assessment, and documentation in the electronic health record. (1) Suicide attempt: (2) Laceration of neck: (3) Major depressive disorder with current active episode: (4) ADHD: (5) Generalized anxiety disorder with panic attacks: Plan 08/07/2023: -Continue current medications and tx plan. 08/06/2023: -Continue current medications and tx plan. 08/05/2023: -Increase Adderall XR to 40mg tomorrow morning 08/04/2023: -Increase [place] to 300mg qd and 600mg HS (recheck Li level in 5 days) 08/03/2023: The patient was [facility] ([facility] inpatient mental health unit) on q15 min checks (behavioral with suicide precautions) for safety. The patient will participate in group, recreational, and milieu therapies and will be offered additional individual and family sessions as clinically appropriate. -Continue mirtazapine 15mg HS, Adderall XR 20mg daily, [place] 300mg BID -[place] BPD questionnaire -Mood Disorder questionnaire -Will reach out to his outpatient psychiatric provider for further recent collateral -Suture removal in approximately 7 days Inventory Assets Strengths: willing to get treatment, academically driven Needs: safety and stabilization, medication adjustment, additional coping skills, increased outpatient services Suicide Risk Level Suicide Risk Level: High-Moderate (q15 min suicide checks) (severe depression with SI with plan prior to admission but feels safe in the hospital, able to safety contract and agrees to let nursing/staff know should they develop plan, intent or feel unable to remain safe. 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 Chief Complaint "the same". Review of Systems Sleep Information Total Hours of Sleep: 6.75 Meal Information Percent Meal Consumed - Breakfast: 100 Percent Meal Consumed - Lunch: 60 Percent Meal Consumed - Dinner: 100 Subjective Subjective Patient was seen & assessed and interval progress reviewed with treatment team nursing and social work. Reported his mood as "defeated" last evening. Was able to tolerate a visit with his mother who arrived from [facility] yesterday. Continues to describe being alive as "painful". Was not able to work on his safety plan. Today reports the visit with his mother last night "went fine". Continues to feel his mood is very low but noted to brighten at times when he is interacting with peers. Attending all groups. Interested in more resources about BPD and BPAD type II. Denies any side effects from Adderall dose adjustment nor from [place]. Physical Exam Psychiatric Orientation: alert and oriented x 3 Apperance: appropriately dressed and appropriately groomed Eye Contact: + fair eye contact Motor Behavior: no abnormal motor movements Speech: + abnormal rate/rhythm/volume of speech (very soft) Affect: + depressed affect, + flat affect and + tearful affect Mood: + depressed mood and + anxious mood Thought Process: + concrete thought process Thought Content: reality based without delusions Suicidal Thoughts: denies suicidal intent; + reports suicidal thoughts and + reports suicidal plan (none for hospital, to cut himself outside of hospital) Homicidal Thoughts: denies homicidal thoughts Hallucinations: no auditory hallucinations and no visual hallucinations Cognition: recent memory grossly intact, remote memory grossly intact, attention grossly intact and language grossly intact Estimated Intelligence: consistent with education level Insight: + limited insight Judgment: + limited judgement Vital Signs (Past 24 Hours) Last Vital Signs Temp 36.7 C 08/07/23 06:00 Pulse 76 08/07/23 06:46 Resp 14 08/07/23 06:00 BP 104/63 08/07/23 06:46 Pulse Ox 98 08/06/23 06:28 O2 Del Method Room Air 08/06/23 06:28 Results & Data ([facility]) Current Inpatient Medications Current Inpatient Medications: Current Inpatient Medications Acetaminophen (Acetaminophen 325 Mg Tab) 650 mg PO Q4H PRN PRN Reason: Headache or Minor Fever Stop: 09/02/23 01:49 Al Hydrox/Mg Hydrox/Simethicone (Aluminum/Magnesium Susp 30 Ml Udc) 30 ml PO Q4H PRN PRN Reason: GI Upset Stop: 09/02/23 01:49 Amphetamine/Dextroamphetamine (Amphetamine Asp/Sulf/Dextramph Er 20 Mg Cap) 40 mg PO DAILY JOSÉ ANTONIO Stop: 08/20/23 08:59 Last Admin: 08/06/23 08:49 Dose: 40 mg Bismuth Subsalicylate (Bismuth Subsalicylate Liqd 236 Ml) 15 ml PO PRN PRN PRN Reason: Loose Stool Stop: 09/02/23 01:49 Hydroxyzine HCl (Hydroxyzine Hcl 25 Mg Tab) 50 mg PO HSZ PRN PRN Reason: Insomnia Stop: 09/02/23 01:49 Hydroxyzine HCl (Hydroxyzine Hcl 25 Mg Tab) 25 mg PO Q4H PRN PRN Reason: Anxiety Stop: 09/02/23 01:49 Last Admin: 08/04/23 14:16 Dose: 25 mg [place] Carbonate ([place] Carbonate 300 Mg Tab) 300 mg PO QD@08 JOSÉ ANTONIO Stop: 09/04/23 07:59 Last Admin: 08/06/23 08:47 Dose: 300 mg [place] Carbonate ([place] Carbonate 300 Mg Tab) 600 mg PO HS JOSÉ ANTONIO Stop: 09/03/23 21:59 Last Admin: 08/06/23 21:03 Dose: 600 mg Magnesium Hydroxide (Magnesium Hydroxide Susp 30 Ml Udc) 30 ml PO DAILY PRN PRN Reason: Constipation Stop: 09/02/23 01:49 Mirtazapine (Mirtazapine Tab 15 Mg Tab) 15 mg PO HS JOSÉ ANTONIO Stop: 09/02/23 21:59 Last Admin: 08/06/23 21:03 Dose: 15 mg Multivitamins/Minerals (Cerovite Adv Formula Tab) 1 tab PO QAM JOSÉ ANTONIO Stop: 09/03/23 08:59 Last Admin: 08/06/23 08:47 Dose: 1 tab Sodium Chloride (Sodium Chloride 0.65% Na Soln 45 Ml ([place])) 1 - 2 sprays NA PRN PRN PRN Reason: Nasal Dryness/Congestion Stop: 09/02/23 01:49 Mental Health & Subst Abuse Tx Therapist Name of Therapist: Favian Willard Individual Pension Consultant Name of Individual Pension Consultant: Student Care [employer] Advocacy Post Discharge Appointments Primary Care Physician Name Of Family Doctor/PCP: BONNIE (2) Laceration of neck Encounter type: initial encounter Qualified Code(s): S11.91XA - Laceration without foreign body of unspecified part of neck, initial encounter (3) Major depressive disorder with current active episode Major depression episode severity: severe Major depression recurrence: recurrent Psychotic features: without psychotic features Qualified Code(s): F33.2 - Major depressive disorder, recurrent severe without psychotic features
[2023-08-07] MEDS: CEROVITE ADV FORMULA TAB PO SCH (09:09)
[2023-08-07] MEDS: AMPHETAMINE ASP/SULF/DEXTRAMPH ER 20 MG CAP PO SCH (09:09)
[2023-08-07] MEDS: LITHIUM CARBONATE 300 MG TAB PO SCH ×2 (09:09→21:02)
[2023-08-07] MEDS: MIRTAZAPINE TAB 15 MG TAB PO SCH (21:01)
[2023-08-08] MEDS: CEROVITE ADV FORMULA TAB PO SCH (08:48)
[2023-08-08] MEDS: LITHIUM CARBONATE 300 MG TAB PO SCH ×2 (08:48→21:37)
[2023-08-08] MEDS: AMPHETAMINE ASP/SULF/DEXTRAMPH ER 20 MG CAP PO SCH (08:48)
[2023-08-08] MEDS: CHOLECALCIFEROL 1,000 UNITS 25 MCG TAB PO SCH (12:07)
--- NOTE | 2023-08-08 13:51 | Psychiatric Progress Note ---
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 Diagnostically consistent with likely acute exacerbation of major depressive disorder with anxious distress versus BPAD type II current depressive episode versus persistent depressive disorder versus BPD with chronic SI/self-harm and co- morbid ADHD and possible recent worsening of DOUG with panic attacks. Similar to his previous inpatient psychiatric admissions he has limited insight into possible stressors or precipitating factors to his attempt and feels worthless, hopelessness and is very socially isolated. He is deemed in need of psychiatric hospitalization for diagnostic clarification, safety and stabilization, medication management and development of further coping skills. MNPR due to recent self-harm, visible self-harm markings, discusses self-harming with peers 08/08/2023: impression as per Dr. Mcclain above, ongoing depression/hopelessness Overall, I spent a total of 37 minutes with this case including review of chart records, direct evaluation of the patient at bedside, counseling the patient, discussion with nursing, and documentation in the electronic health record. (1) Suicide attempt: (2) Laceration of neck: (3) Major depressive disorder with current active episode: (4) ADHD: (5) Generalized anxiety disorder with panic attacks: Plan 08/08/2023: add vitamin D for hx of deficiency and time of year, repeat lithium level in am. 08/07/2023: -Continue current medications and tx plan. 08/06/2023: -Continue current medications and tx plan. 08/05/2023: -Increase Adderall XR to 40mg tomorrow morning 08/04/2023: -Increase Waterview to 300mg qd and 600mg HS (recheck Li level in 5 days) 08/03/2023: The patient was admitted to the [facility] ([facility] mental health unit) on q15 min checks (behavioral with suicide precautions) for safety. The patient will participate in group, recreational, and milieu therapies and will be offered additional individual and family sessions as clinically appropriate. -Continue mirtazapine 15mg HS, Adderall XR 20mg daily, Waterview 300mg BID -[place] BPD questionnaire -Mood Disorder questionnaire -Will reach out to his outpatient psychiatric provider for further recent collateral -Suture removal in approximately 7 days Inventory Assets Strengths: willing to get treatment, academically driven Needs: safety and stabilization, medication adjustment, additional coping skills, increased outpatient services Suicide Risk Level Suicide Risk Level: High-Moderate (q15 min suicide checks) Risk Factors Assessment Male: Yes : No Do You Have Access To A Gun?: No (will confirm again before d/c) Health Problems: No Mental Health Diagnoses: Yes Substance Use Disorders: No Previous Attempt: Yes Previous Psychiatric Hospitalization: Yes Protective Factors Assessment Employed: No Supportive Family: Yes Good Rapport with Provider: Yes Interval History Identifying Information KAREN MEADOWS is a 18-year-old man and international [employer] student from [facility] who currently lives on campus, has a history of major depressive disorder, chronic intermittent SI, ADHD and was admitted on 08/03/23 01:11 on a 201 voluntary commitment for suicide attempt via ingestion of aspirin and self-inflicted lacerations to his neck and wrist requiring 7 sutures in an effort to bleed to . Chief Complaint "I guess my energy is a little better, I'm worried about aftercare." Review of Systems Sleep Information Total Hours of Sleep: 6.5 Meal Information Percent Meal Consumed - Breakfast: 100 Percent Meal Consumed - Lunch: 100 Percent Meal Consumed - Dinner: 100 Subjective Subjective Patient was seen & assessed and interval progress reviewed with nursing. c/o intermittent dizziness, unclear if positional, staff checked orthostatics and were normal. Patient did not attribute to medication side effect. Reviewed his labs on admission that included undetectable lithium level. He denied urges to self injure on unit but rates mood as "1", is interacting with peers, unable to contract for safety outside of the hospital. Physical Exam Psychiatric Orientation: alert and oriented x 3 Apperance: appropriately dressed and appropriately groomed Eye Contact: + poor eye contact (looks down) Motor Behavior: no abnormal motor movements Speech: + abnormal rate/rhythm/volume of speech (very soft) Affect: + depressed affect Mood: + depressed mood and + anxious mood Thought Process: + concrete thought process Thought Content: reality based without delusions Suicidal Thoughts: denies suicidal plan and denies suicidal intent; + reports suicidal thoughts Homicidal Thoughts: denies homicidal thoughts Hallucinations: no auditory hallucinations and no visual hallucinations Cognition: recent memory grossly intact, remote memory grossly intact, attention grossly intact and language grossly intact Estimated Intelligence: consistent with education level Insight: + limited insight Judgment: + limited judgement Vital Signs (Past 24 Hours) Last Vital Signs Temp 36.6 C 08/08/23 06:35 Pulse 96 H 08/08/23 10:56 Resp 18 08/08/23 10:56 BP 109/66 08/08/23 10:56 Pulse Ox 98 08/06/23 06:28 O2 Del Method Room Air 08/06/23 06:28 Results & Data ([facility]) Current Inpatient Medications Current Inpatient Medications: Current Inpatient Medications Acetaminophen (Acetaminophen 325 Mg Tab) 650 mg PO Q4H PRN PRN Reason: Headache or Minor Fever Stop: 09/02/23 01:49 Al Hydrox/Mg Hydrox/Simethicone (Aluminum/Magnesium Susp 30 Ml Udc) 30 ml PO Q4H PRN PRN Reason: GI Upset Stop: 09/02/23 01:49 Amphetamine/Dextroamphetamine (Amphetamine Asp/Sulf/Dextramph Er 20 Mg Cap) 40 mg PO DAILY JOSÉ ANTONIO Stop: 08/20/23 08:59 Last Admin: 08/08/23 08:48 Dose: 40 mg Bismuth Subsalicylate (Bismuth Subsalicylate Liqd 236 Ml) 15 ml PO PRN PRN PRN Reason: Loose Stool Stop: 09/02/23 01:49 Hydroxyzine HCl (Hydroxyzine Hcl 25 Mg Tab) 50 mg PO HSZ PRN PRN Reason: Insomnia Stop: 09/02/23 01:49 Hydroxyzine HCl (Hydroxyzine Hcl 25 Mg Tab) 25 mg PO Q4H PRN PRN Reason: Anxiety Stop: 09/02/23 01:49 Last Admin: 08/04/23 14:16 Dose: 25 mg Waterview Carbonate (Waterview Carbonate 300 Mg Tab) 300 mg PO QD@08 JOSÉ ANTONIO Stop: 09/04/23 07:59 Last Admin: 08/08/23 08:48 Dose: 300 mg Waterview Carbonate (Waterview Carbonate 300 Mg Tab) 600 mg PO HS JOSÉ ANTONIO Stop: 09/03/23 21:59 Last Admin: 08/07/23 21:02 Dose: 600 mg Magnesium Hydroxide (Magnesium Hydroxide Susp 30 Ml Udc) 30 ml PO DAILY PRN PRN Reason: Constipation Stop: 09/02/23 01:49 Mirtazapine (Mirtazapine Tab 15 Mg Tab) 15 mg PO HS JOSÉ ANTONIO Stop: 09/02/23 21:59 Last Admin: 08/07/23 21:01 Dose: 15 mg Multivitamins/Minerals (Cerovite Adv Formula Tab) 1 tab PO QAM JOSÉ ANTONIO Stop: 09/03/23 08:59 Last Admin: 08/08/23 08:48 Dose: 1 tab Sodium Chloride (Sodium Chloride 0.65% Na Soln 45 Ml ([place])) 1 - 2 sprays NA PRN PRN PRN Reason: Nasal Dryness/Congestion Stop: 09/02/23 01:49 Vitamin D (Cholecalciferol 1,000 Units 25 Mcg Tab) 1,000 units PO QAM JOSÉ ANTONIO Stop: 09/07/23 10:29 Last Admin: 08/08/23 12:07 Dose: 1,000 units Mental Health & Subst Abuse Tx Therapist Name of Therapist: Favian Willard Cell Feed Department Supervisor Name of Cell Feed Department Supervisor: Student Care and Advocacy Post Discharge Appointments Primary Care Physician Name Of Family Doctor/PCP: BONNIE (2) Laceration of neck Encounter type: initial encounter Qualified Code(s): S11.91XA - Laceration without foreign body of unspecified part of neck, initial encounter (3) Major depressive disorder with current active episode Major depression episode severity: severe Major depression recurrence: recurrent Psychotic features: without psychotic features Qualified Code(s): F33.2 - Major depressive disorder, recurrent severe without psychotic features
[2023-08-08] MEDS: MIRTAZAPINE TAB 15 MG TAB PO SCH (21:38)
[2023-08-08] MEDS: hydrOXYzine HCl 25 MG TAB PO PRN (22:00)
[2023-08-09] MEDS ORDERED: BACITRACIN OINT 14 GM TUBE EXT ONE (10:18)
[2023-08-09] MEDS: CHOLECALCIFEROL 1,000 UNITS 25 MCG TAB PO SCH (10:19)
[2023-08-09] MEDS: CEROVITE ADV FORMULA TAB PO SCH (10:20)
[2023-08-09] MEDS: LITHIUM CARBONATE 300 MG TAB PO SCH ×2 (10:20→21:46)
[2023-08-09] MEDS: AMPHETAMINE ASP/SULF/DEXTRAMPH ER 20 MG CAP PO SCH (10:20)
--- NOTE | 2023-08-09 14:10 | Psychiatric Progress Note ---
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 Diagnostically consistent with likely acute exacerbation of major depressive disorder with anxious distress versus BPAD type II current depressive episode versus persistent depressive disorder versus BPD with chronic SI/self-harm and co- morbid ADHD and possible recent worsening of DOUG with panic attacks. Similar to his previous inpatient psychiatric admissions he has limited insight into possible stressors or precipitating factors to his attempt and feels worthless, hopelessness and is very socially isolated. He is deemed in need of psychiatric hospitalization for diagnostic clarification, safety and stabilization, medication management and development of further coping skills. MNPR due to recent self-harm, visible self-harm markings, discusses self-harming with peers 08/09/2023: improving Overall, I spent a total of 52 minutes with this case including review of chart records, direct evaluation of the patient at bedside, counseling the patient, discussion with nursing, documentation in the electronic health record, suture removal, review of labs. (1) Suicide attempt: (2) Laceration of neck: (3) Major depressive disorder with current active episode: (4) ADHD: (5) Generalized anxiety disorder with panic attacks: Plan 08/09/2023: sutures removed, Nunica 0.5, consider increase. 08/08/2023: add vitamin D for hx of deficiency and time of year, repeat lithium level in am. 08/07/2023: -Continue current medications and tx plan. 08/06/2023: -Continue current medications and tx plan. 08/05/2023: -Increase Adderall XR to 40mg tomorrow morning 08/04/2023: -Increase Nunica to 300mg qd and 600mg HS (recheck Li level in 5 days) 08/03/2023: The patient was admitted to the [facility] ([facility] mental health unit) on q15 min checks (behavioral with suicide precautions) for safety. The patient will participate in group, recreational, and milieu therapies and will be offered additional individual and family sessions as clinically appropriate. -Continue mirtazapine 15mg HS, Adderall XR 20mg daily, Nunica 300mg BID -[place] BPD questionnaire -Mood Disorder questionnaire -Will reach out to his outpatient psychiatric provider for further recent collateral -Suture removal in approximately 7 days Inventory Assets Strengths: willing to get treatment, academically driven Needs: safety and stabilization, medication adjustment, additional coping skills, increased outpatient services Suicide Risk Level Suicide Risk Level: High-Moderate (q15 min suicide checks) Risk Factors Assessment Male: Yes : No Do You Have Access To A Gun?: No (will confirm again before d/c) Health Problems: No Mental Health Diagnoses: Yes Substance Use Disorders: No Previous Attempt: Yes Previous Psychiatric Hospitalization: Yes Protective Factors Assessment Employed: No Supportive Family: Yes Good Rapport with Provider: Yes Interval History Identifying Information KAREN MEADOWS is a 18-year-old man and 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 Chief Complaint "I read stuff about BPD and not sure if it fits". Review of Systems Sleep Information Total Hours of Sleep: 6.5 Meal Information Percent Meal Consumed - Breakfast: 100 Percent Meal Consumed - Lunch: 100 Percent Meal Consumed - Dinner: 100 Subjective Subjective Patient was seen & assessed and interval progress reviewed with nursing and social work. Patient has been cooperative with unit routines, still appears rather sullen 1-on-1 but relating well with peers. He denies urges to self- injure but is rather guarded/limited in ability to safety plan outside of the hospital and re: any ongoing intermittent SI. his wounds on side neck and left wrist appeared well healed and given in place 1 week were removed by myself using sterile kit. There was a small area of excoriation under the 1 knot on his neck but no bleeding or dehiscence upon removal. Bacitracin ordered. Discussed use of Mederma for wrist outside of hospital. He was thankful for the care. Physical Exam Psychiatric Orientation: alert and oriented x 3 Apperance: appropriately dressed and appropriately groomed Eye Contact: good eye contact Motor Behavior: no abnormal motor movements Speech: normal rate/rhythm/volume of speech Affect: + depressed affect Mood: + depressed mood Thought Process: goal directed thought process Thought Content: reality based without delusions Suicidal Thoughts: denies suicidal thoughts Homicidal Thoughts: denies homicidal thoughts Hallucinations: no auditory hallucinations and no visual hallucinations Cognition: attention grossly intact and language grossly intact Estimated Intelligence: consistent with education level Insight: + limited insight Judgment: + limited judgement Vital Signs (Past 24 Hours) Last Vital Signs Temp 36.5 C 08/09/23 06:35 Pulse 82 08/09/23 06:36 Resp 16 08/09/23 06:35 BP 103/67 08/09/23 06:36 Pulse Ox 98 08/06/23 06:28 O2 Del Method Room Air 08/06/23 06:28 Results & Data ([facility]) Laboratory Results Laboratory Results - last 24 hr 08/09/23 07:28 Nunica 0.5 L Current Inpatient Medications Current Inpatient Medications: Current Inpatient Medications Acetaminophen (Acetaminophen 325 Mg Tab) 650 mg PO Q4H PRN PRN Reason: Headache or Minor Fever Stop: 09/02/23 01:49 Al Hydrox/Mg Hydrox/Simethicone (Aluminum/Magnesium Susp 30 Ml Udc) 30 ml PO Q4H PRN PRN Reason: GI Upset Stop: 09/02/23 01:49 Amphetamine/Dextroamphetamine (Amphetamine Asp/Sulf/Dextramph Er 20 Mg Cap) 40 mg PO DAILY JOSÉ ANTONIO Stop: 08/20/23 08:59 Last Admin: 08/09/23 10:20 Dose: 40 mg Bismuth Subsalicylate (Bismuth Subsalicylate Liqd 236 Ml) 15 ml PO PRN PRN PRN Reason: Loose Stool Stop: 09/02/23 01:49 Hydroxyzine HCl (Hydroxyzine Hcl 25 Mg Tab) 50 mg PO HSZ PRN PRN Reason: Insomnia Stop: 09/02/23 01:49 Last Admin: 08/08/23 22:00 Dose: 50 mg Hydroxyzine HCl (Hydroxyzine Hcl 25 Mg Tab) 25 mg PO Q4H PRN PRN Reason: Anxiety Stop: 09/02/23 01:49 Last Admin: 08/04/23 14:16 Dose: 25 mg Nunica Carbonate (N[place]ica Carbonate 300 Mg Tab) 300 mg PO QD@08 JOSÉ ANTONIO Stop: 09/04/23 07:59 Last Admin: 08/09/23 10:20 Dose: 300 mg [place] Carbonate ([place] Carbonate 300 Mg Tab) 600 mg PO HS JOSÉ ANTONIO Stop: 09/03/23 21:59 Last Admin: 08/08/23 21:37 Dose: 600 mg Magnesium Hydroxide (Magnesium Hydroxide Susp 30 Ml Udc) 30 ml PO DAILY PRN PRN Reason: Constipation Stop: 09/02/23 01:49 Mirtazapine (Mirtazapine Tab 15 Mg Tab) 15 mg PO HS JOSÉ ANTONIO Stop: 09/02/23 21:59 Last Admin: 08/08/23 21:38 Dose: 15 mg Multivitamins/Minerals (Cerovite Adv Formula Tab) 1 tab PO QAM JOSÉ ANTONIO Stop: 09/03/23 08:59 Last Admin: 08/09/23 10:20 Dose: 1 tab Sodium Chloride (Sodium Chloride 0.65% Na Soln 45 Ml ([place])) 1 - 2 sprays NA PRN PRN PRN Reason: Nasal Dryness/Congestion Stop: 09/02/23 01:49 Vitamin D (Cholecalciferol 1,000 Units 25 Mcg Tab) 1,000 units PO QAM JOSÉ ANTONIO Stop: 09/07/23 10:29 Last Admin: 08/09/23 10:19 Dose: 1,000 units Mental Health & Subst Abuse Tx Therapist Name of Therapist: Favian Willard Echo Vasc Tech Name of Echo Vasc Tech: Student Care and Advocacy Post Discharge Appointments Primary Care Physician Name Of Family Doctor/PCP: BONNIE (2) Laceration of neck Encounter type: initial encounter Qualified Code(s): S11.91XA - Laceration without foreign body of unspecified part of neck, initial encounter (3) Major depressive disorder with current active episode Major depression episode severity: severe Major depression recurrence: recurrent Psychotic features: without psychotic features Qualified Code(s): F33.2 - Major depressive disorder, recurrent severe without psychotic features
[2023-08-09] MEDS: MIRTAZAPINE TAB 15 MG TAB PO SCH (21:46)
[2023-08-10] MEDS ORDERED: LORazepam 1 MG TAB PO ONE (00:26)
[2023-08-10] MEDS: LITHIUM CARBONATE 300 MG TAB PO SCH ×2 (09:43→21:15)
[2023-08-10] MEDS: AMPHETAMINE ASP/SULF/DEXTRAMPH ER 20 MG CAP PO SCH (09:43)
[2023-08-10] MEDS: CEROVITE ADV FORMULA TAB PO SCH (09:43)
[2023-08-10] MEDS: CHOLECALCIFEROL 1,000 UNITS 25 MCG TAB PO SCH (09:43)
--- NOTE | 2023-08-10 18:02 | Psychiatric Progress Note ---
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 Diagnostically consistent with likely acute exacerbation of major depressive disorder with anxious distress versus BPAD type II current depressive episode versus persistent depressive disorder versus BPD with chronic SI/self-harm and co- morbid ADHD and possible recent worsening of DOUG with panic attacks. Similar to his previous inpatient psychiatric admissions he has limited insight into possible stressors or precipitating factors to his attempt and feels worthless, hopelessness and is very socially isolated. He is deemed in need of psychiatric hospitalization for diagnostic clarification, safety and stabilization, medication management and development of further coping skills. MNPR due to recent self-harm, visible self-harm markings, discusses self-harming with peers 08/10/2023: decompensated last pm Overall, I spent a total of 75 minutes with this case including review of chart records, direct evaluation of the patient at bedside, counseling the patient, discussion with treatment team, participating in meeting with sw and family, documentation in the electronic health record, multiple contacts for safety (1) Suicide attempt: (2) Laceration of neck: (3) Major depressive disorder with current active episode: (4) ADHD: (5) Generalized anxiety disorder with panic attacks: Plan 08/10/2023: patient agreed to titrate lithium. 08/09/2023: sutures removed, [place] 0.5, consider increase. 08/08/2023: add vitamin D for hx of deficiency and time of year, repeat lithium level in am. 08/07/2023: -Continue current medications and tx plan. 08/06/2023: -Continue current medications and tx plan. 08/05/2023: -Increase Adderall XR to 40mg tomorrow morning 08/04/2023: -Increase [place] to 300mg qd and 600mg HS (recheck Li level in 5 days) 08/03/2023: The patient was admitted to the [facility] ([facility] unit) on q15 min checks (behavioral with suicide precautions) for safety. The patient will participate in group, recreational, and milieu therapies and will be offered additional individual and family sessions as clinically appropriate. -Continue mirtazapine 15mg HS, Adderall XR 20mg daily, [place] 300mg BID -Allen BPD questionnaire -Mood Disorder questionnaire -Will reach out to his outpatient psychiatric provider for further recent collateral -Suture removal in approximately 7 days Inventory Assets Strengths: willing to get treatment, academically driven Needs: safety and stabilization, medication adjustment, additional coping skills, increased outpatient services Suicide Risk Level Suicide Risk Level: High-Moderate (q15 min suicide checks) Risk Factors Assessment Male: Yes : No Do You Have Access To A Gun?: No (will confirm again before d/c) Health Problems: No Mental Health Diagnoses: Yes Substance Use Disorders: No Previous Attempt: Yes Previous Psychiatric Hospitalization: Yes Protective Factors Assessment Employed: No Supportive Family: Yes Good Rapport with Provider: Yes Interval History Identifying Information KAREN MEADOWS is a 18-year-old man and 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 Chief Complaint SIB Review of Systems Sleep Information Total Hours of Sleep: 4.5 Meal Information Percent Meal Consumed - Breakfast: 100 Percent Meal Consumed - Lunch: 0 Percent Meal Consumed - Dinner: 100 Subjective Subjective Patient was seen & assessed and interval progress reviewed with treatment team. Patient with marked difficulties overnight, period of intentional head banging (not to severity to injure self/contussion) and unresponsiveness to staff despite being alert. Ultimately fell asleep after Ativan prn. Patient reported awareness of what was happening and was clearly not dissociative when he repeated the behavior this am. He was resistant to the fact this was triggered by a stressor but a peer with whom he had interacting with alot was pending discharge and there was a discharge planning meeting with his mother and Shellie Dominguez from [employer] student care and advocacy. Patient refused prn this am and did transition to unlocked seclusion after which was attempting to tie sweatshirt ar ound neck. He rested and remains in safety gown with safety tray this pm when seen for a second time. Reviewed with patient that I discussed his care, condition, and dx with mother in meeting earlier today. He sat up and asked about spravato and reviewed [facility] is not an approved site and cannot be discharged to [place] and come back as he id requesting. Physical Exam Psychiatric Orientation: alert Apperance: appropriately dressed and appropriately groomed Eye Contact: + poor eye contact (looks down) Motor Behavior: no abnormal motor movements Speech: normal rate/rhythm/volume of speech Affect: + depressed affect, + anxious affect, + flat affect and + tearful affect Mood: + depressed mood and + anxious mood Thought Process: + concrete thought process Thought Content: reality based without delusions Suicidal Thoughts: + reports suicidal thoughts and + reports suicidal plan Homicidal Thoughts: denies homicidal thoughts Hallucinations: no auditory hallucinations and no visual hallucinations Cognition: recent memory grossly intact, remote memory grossly intact, attention grossly intact and language grossly intact Estimated Intelligence: consistent with education level Insight: + limited insight Judgment: + limited judgement Vital Signs (Past 24 Hours) Last Vital Signs Temp 36.5 C 08/09/23 06:35 Pulse 82 08/09/23 06:36 Resp 16 08/09/23 06:35 BP 103/67 08/09/23 06:36 Pulse Ox 98 08/06/23 06:28 O2 Del Method Room Air 08/06/23 06:28 Results & Data ([facility]) Current Inpatient Medications Current Inpatient Medications: Current Inpatient Medications Acetaminophen (Acetaminophen 325 Mg Tab) 650 mg PO Q4H PRN PRN Reason: Headache or Minor Fever Stop: 09/02/23 01:49 Al Hydrox/Mg Hydrox/Simethicone (Aluminum/Magnesium Susp 30 Ml Udc) 30 ml PO Q4H PRN PRN Reason: GI Upset Stop: 09/02/23 01:49 Amphetamine/Dextroamphetamine (Amphetamine Asp/Sulf/Dextramph Er 20 Mg Cap) 40 mg PO DAILY JOSÉ ANTONIO Stop: 08/20/23 08:59 Last Admin: 08/10/23 09:43 Dose: Not Given Bismuth Subsalicylate (Bismuth Subsalicylate Liqd 236 Ml) 15 ml PO PRN PRN PRN Reason: Loose Stool Stop: 09/02/23 01:49 Hydroxyzine HCl (Hydroxyzine Hcl 25 Mg Tab) 50 mg PO HSZ PRN PRN Reason: Insomnia Stop: 09/02/23 01:49 Last Admin: 08/08/23 22:00 Dose: 50 mg Hydroxyzine HCl (Hydroxyzine Hcl 25 Mg Tab) 25 mg PO Q4H PRN PRN Reason: Anxiety Stop: 09/02/23 01:49 Last Admin: 08/04/23 14:16 Dose: 25 mg [place] Carbonate ([place] Carbonate 300 Mg Tab) 300 mg PO QD@08 [facility] Stop: 09/04/23 07:59 Last Admin: 08/10/23 09:43 Dose: Not Given [place] Carbonate ([place] Carbonate 300 Mg Tab) 600 mg PO HS [facility] Stop: 09/03/23 21:59 Last Admin: 08/09/23 21:46 Dose: 600 mg Magnesium Hydroxide (Magnesium Hydroxide Susp 30 Ml Udc) 30 ml PO DAILY PRN PRN Reason: Constipation Stop: 09/02/23 01:49 Mirtazapine (Mirtazapine Tab 15 Mg Tab) 15 mg PO HS [facility] Stop: 09/02/23 21:59 Last Admin: 08/09/23 21:46 Dose: 15 mg Multivitamins/Minerals (Cerovite Adv Formula Tab) 1 tab PO QAM [facility] Stop: 09/03/23 08:59 Last Admin: 08/10/23 09:43 Dose: Not Given Sodium Chloride (Sodium Chloride 0.65% Na Soln 45 Ml ([place])) 1 - 2 sprays NA PRN PRN PRN Reason: Nasal Dryness/Congestion Stop: 09/02/23 01:49 Vitamin D (Cholecalciferol 1,000 Units 25 Mcg Tab) 1,000 units PO QAM [facility] Stop: 09/07/23 10:29 Last Admin: 08/10/23 09:43 Dose: Not Given Mental Health & Subst Abuse Tx Therapist Name of Therapist: Favian Willard Group Contract Analyst Name of Group Contract Analyst: Student Care and Advocacy Post Discharge Appointments Primary Care Physician Name Of Family Doctor/PCP: BONNIE (2) Laceration of neck Encounter type: initial encounter Qualified Code(s): S11.91XA - Laceration without foreign body of unspecified part of neck, initial encounter (3) Major depressive disorder with current active episode Major depression episode severity: severe Major depression recurrence: recurrent Psychotic features: without psychotic features Qualified Code(s): F33.2 - Major depressive disorder, recurrent severe without psychotic features
[2023-08-10] MEDS: MIRTAZAPINE TAB 15 MG TAB PO SCH (21:15)
[2023-08-11] MEDS: CHOLECALCIFEROL 1,000 UNITS 25 MCG TAB PO SCH (08:49)
[2023-08-11] MEDS: CEROVITE ADV FORMULA TAB PO SCH (08:49)
[2023-08-11] MEDS: AMPHETAMINE ASP/SULF/DEXTRAMPH ER 20 MG CAP PO SCH (08:49)
[2023-08-11] MEDS: LITHIUM CARBONATE 300 MG TAB PO SCH ×2 (08:50→21:15)
--- NOTE | 2023-08-11 17:00 | Psychiatric Progress Note ---
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 Diagnostically consistent with likely acute exacerbation of major depressive disorder with anxious distress versus BPAD type II current depressive episode versus persistent depressive disorder versus BPD with chronic SI/self-harm and co- morbid ADHD and possible recent worsening of DOUG with panic attacks. Similar to his previous inpatient psychiatric admissions he has limited insight into possible stressors or precipitating factors to his attempt and feels worthless, hopelessness and is very socially isolated. He is deemed in need of psychiatric hospitalization for diagnostic clarification, safety and stabilization, medication management and development of further coping skills. MNPR due to recent self-harm, visible self-harm markings, discusses self-harming with peers 08/11/2023: more stable today Overall, I spent a total of 48 minutes with this case including review of chart records, direct evaluation of the patient, counseling the patient, discussion with sw and coordination with outpatient, documentation in the electronic health record, (1) Suicide attempt: (2) Laceration of neck: (3) Major depressive disorder with current active episode: (4) ADHD: (5) Generalized anxiety disorder with panic attacks: Plan 08/11/2023: needs family meeting 08/10/2023: patient agreed to titrate lithium. 08/09/2023: sutures removed, [place] 0.5, consider increase. 08/08/2023: add vitamin D for hx of deficiency and time of year, repeat lithium level in am. 08/07/2023: -Continue current medications and tx plan. 08/06/2023: -Continue current medications and tx plan. 08/05/2023: -Increase Adderall XR to 40mg tomorrow morning 08/04/2023: -Increase [place] to 300mg qd and 600mg HS (recheck Li level in 5 days) 08/03/2023: The patient was admitted to the [facility] ([facility] mental health unit) on q15 min checks (behavioral with suicide precautions) for safety. The patient will participate in group, recreational, and milieu therapies and will be offered additional individual and family sessions as clinically appropriate. -Continue mirtazapine 15mg HS, Adderall XR 20mg daily, [place] 300mg BID -Allen BPD questionnaire -Mood Disorder questionnaire -Will reach out to his outpatient psychiatric provider for further recent barbara ateral -Suture removal in approximately 7 days Inventory Assets Strengths: willing to get treatment, academically driven Needs: safety and stabilization, medication adjustment, additional coping skills, increased outpatient services Suicide Risk Level Suicide Risk Level: High-Moderate (q15 min suicide checks) Risk Factors Assessment Male: Yes : No Do You Have Access To A Gun?: No (will confirm again before d/c) Health Problems: No Mental Health Diagnoses: Yes Substance Use Disorders: No Previous Attempt: Yes Previous Psychiatric Hospitalization: Yes Protective Factors Assessment Employed: No Supportive Family: Yes Good Rapport with Provider: Yes Interval History Identifying Information KAREN MEADOWS is a 18-year-old man and 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 Chief Complaint feels "blocked" Review of Systems Sleep Information Total Hours of Sleep: 7.5 Meal Information Percent Meal Consumed - Breakfast: 100 Percent Meal Consumed - Lunch: 100 Percent Meal Consumed - Dinner: 90 Subjective Subjective Patient was seen & assessed and interval progress reviewed with nursing and social work. Met with patient with sw to process his SIB yesterday and plan of care to facilitate discharge planning. Patient seems focussed on [place] vs. [facility] that accepts his current insurance vs. local care with [facility]. After meeting with patient confirmed with [place] that his appeal was denied. He reported feeling ongoing inpatient stay seems countertherapeutic and even punitive and reviewed necessary safety planning. Physical Exam Psychiatric Orientation: alert and oriented x 3 Apperance: appropriately dressed and appropriately groomed Eye Contact: + poor eye contact (looks down) Motor Behavior: no abnormal motor movements Speech: normal rate/rhythm/volume of speech Affect: + depressed affect Mood: + depressed mood Thought Process: goal directed thought process and + concrete thought process Thought Content: reality based without delusions Suicidal Thoughts: denies suicidal intent; + reports suicidal thoughts and + reports suicidal plan Homicidal Thoughts: denies homicidal thoughts Hallucinations: no auditory hallucinations and no visual hallucinations Cognition: recent memory grossly intact, remote memory grossly intact, attention grossly intact and language grossly intact Estimated Intelligence: consistent with education level Insight: + limited insight Judgment: + limited judgement Vital Signs (Past 24 Hours) Last Vital Signs Temp 37.1 C 08/11/23 06:44 Pulse 74 08/11/23 06:44 Resp 18 08/11/23 06:44 BP 115/72 08/11/23 06:44 Pulse Ox 98 08/06/23 06:28 O2 Del Method Room Air 08/06/23 06:28 Results & Data ([facility]) Current Inpatient Medications Current Inpatient Medications: Current Inpatient Medications Acetaminophen (Acetaminophen 325 Mg Tab) 650 mg PO Q4H PRN PRN Reason: Headache or Minor Fever Stop: 09/02/23 01:49 Al Hydrox/Mg Hydrox/Simethicone (Aluminum/Magnesium Susp 30 Ml Udc) 30 ml PO Q4H PRN PRN Reason: GI Upset Stop: 09/02/23 01:49 Amphetamine/Dextroamphetamine (Amphetamine Asp/Sulf/Dextramph Er 20 Mg Cap) 40 mg PO DAILY JOSÉ ANTONIO Stop: 08/20/23 08:59 Last Admin: 08/11/23 08:49 Dose: 40 mg Bismuth Subsalicylate (Bismuth Subsalicylate Liqd 236 Ml) 15 ml PO PRN PRN PRN Reason: Loose Stool Stop: 09/02/23 01:49 Hydroxyzine HCl (Hydroxyzine Hcl 25 Mg Tab) 50 mg PO HSZ PRN PRN Reason: Insomnia Stop: 09/02/23 01:49 Last Admin: 08/08/23 22:00 Dose: 50 mg Hydroxyzine HCl (Hydroxyzine Hcl 25 Mg Tab) 25 mg PO Q4H PRN PRN Reason: Anxiety Stop: 09/02/23 01:49 Last Admin: 08/04/23 14:16 Dose: 25 mg [place] Carbonate ([place] Carbonate 300 Mg Tab) 600 mg PO BID JOSÉ ANTONIO Stop: 09/09/23 20:59 Last Admin: 08/11/23 08:50 Dose: 600 mg Magnesium Hydroxide (Magnesium Hydroxide Susp 30 Ml Udc) 30 ml PO DAILY PRN PRN Reason: Constipation Stop: 11/01/23 01:49 Mirtazapine (Mirtazapine Tab 15 Mg Tab) 15 mg PO HS JOSÉ ANTONIO Stop: 09/02/23 21:59 Last Admin: 08/10/23 21:15 Dose: 15 mg Multivitamins/Minerals (Cerovite Adv Formula Tab) 1 tab PO QAM JOSÉ ANTONIO Stop: 09/03/23 08:59 Last Admin: 08/11/23 08:49 Dose: 1 tab Sodium Chloride (Sodium Chloride 0.65% Na Soln 45 Ml ([place])) 1 - 2 sprays NA PRN PRN PRN Reason: Nasal Dryness/Congestion Stop: 09/02/23 01:49 Vitamin D (Cholecalciferol 1,000 Units 25 Mcg Tab) 1,000 units PO QAM JOSÉ ANTONIO Stop: 09/07/23 10:29 Last Admin: 08/11/23 08:49 Dose: 1,000 units Mental Health & Subst Abuse Tx Therapist Name of Therapist: Favian Willard Welfare Specialist Name of Welfare Specialist: Student Care [employer] Advocacy Post Discharge Appointments Primary Care Physician Name Of Family Doctor/PCP: BONNIE (2) Laceration of neck Encounter type: initial encounter Qualified Code(s): S11.91XA - Laceration without foreign body of unspecified part of neck, initial encounter (3) Major depressive disorder with current active episode Major depression episode severity: severe Major depression recurrence: recurrent Psychotic features: without psychotic features Qualified Code(s): F33.2 - Major depressive disorder, recurrent severe without psychotic features
[2023-08-11] MEDS: hydrOXYzine HCl 25 MG TAB PO PRN (19:42)
[2023-08-11] MEDS ORDERED: diphenhydrAMINE 2%/ZINC 0.1% CREAM 28.4GM TUBE EXT PRN (19:54)
[2023-08-11] MEDS: MIRTAZAPINE TAB 15 MG TAB PO SCH (21:16)
[2023-08-12] MEDS: hydrOXYzine HCl 25 MG TAB PO PRN (02:34)
[2023-08-12] MEDS ORDERED: diphenhydrAMINE Capsule 25 MG CAP PO ONE (08:12)
[2023-08-12] MEDS: AMPHETAMINE ASP/SULF/DEXTRAMPH ER 20 MG CAP PO SCH (08:25)
[2023-08-12] MEDS: LITHIUM CARBONATE 300 MG TAB PO SCH (08:26)
[2023-08-12] MEDS: CEROVITE ADV FORMULA TAB PO SCH (08:26)
[2023-08-12] MEDS: CHOLECALCIFEROL 1,000 UNITS 25 MCG TAB PO SCH (08:26)
--- NOTE | 2023-08-12 18:36 | Discharge Summary ---
Date of Service August 12, 2023 History of Present Illness As per Dr. Mcclain on admission: Mike was brought to the hospital via police after he attempted suicide by taking two doses of aspirin to increase his likelihood of bleeding and then cutting himself on his neck and wrist with a scalpel from a suture kit he bought as a suicide attempt. He eventually called 911 and on arrival to the ED required 7 sutures. He had been thinking about cutting himself as an attempt for days and decided to act on the thoughts because "I just couldn't stomach waking up another day". He reports he's been going to class but not doing his homework and got a 76 on a recent exam but also "excellence" on his organic chemistry exams. He did talk to his mom and let her know he's in the hospital. He describes feeling he is "treatment resistant" due to trying "so many meds and never responding". He is regretful of being alive but feels safe in the hospital. He notes "nothing really matters" and expresses frustration that he's been "playing tennis, talking to friends, going to therapy, taking all my medications and doing everything I'm supposed to and yet I still didn't feel any better". He describes significant depression with hopelessness, worthlessness, anhedonia,decreased motivation, helplessness, hopelessness, decreased energy, increased appetite, and decreased sleep but ok with mirtazapine. Self-harms "at least once a week" via cutting, scratching and banging his head against the wall. Also endorses significant "spells of crying" which the Klonopin helps a bit with. He feels since his last hospitalization things have been "consistently bad". He was in [facility] over the summer but did not notice any difference (better or worse) in his mood during that time nor since returning to [facility] for the ester. He is currently prescribed psychiatric medications of: Adderall XR 20mg daily, Klonopin 0.5mg BID prn for anxiety (once every other day), mirtazapine 15mg HS, Lequire 300mg BID (dose increased on 07/31/2023) and Trintellix 20mg daily. Additional recent history reviewed and confirmed as documented by ED CM on 08/02/2023: "Pt presents via EMS after attempting to kill himself by cutting his wrist and neck. Pt states he also took 2 aspirin prior to cutting himself in an attempt to thin his blood. He does have a prior suicide attempt early this year which resulted in psychiatric hospitalization. Pt states he has been hospitalized twice in the past year, both on the psychiatric unit here at [facility]. 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 Mike lives alone on campus. He reports regular sleep with no complaints and some recent weight gain. He denies any specific triggers, stating that it all just became too much. He endorses ongoing depression which has been worsening since March as well as increasing anxiety with multiple panic attacks weekly. Pt was unable to identify any reasons to stay alive. He is set up with therapy at [facility] and sees Emmanuelle Mckenzie there and has med management with [facility]" Physical Exam Psychiatric See admission H&P and DOD assessment. Vital Signs (Past 24 Hours) Last Vital Signs Temp 37 C 08/12/23 12:19 Pulse 64 08/12/23 12:19 Resp 16 08/12/23 12:19 BP 109/66 08/12/23 12:19 Pulse Ox 98 08/12/23 12:19 O2 Del Method Room Air 08/06/23 06:28 Principal Diagnosis major depressive disorder, recurrent, severe Psychiatric Data See daily stay summary. In short, safety was maintained and the patient was cooperative with care. Medication changes included an increase in Adderall XR and Lequire and they tolerated this well. The patient requested that his Adderall XR be prescribed for 30 mg at discharge rather than 40 mg receiving here as preferred one pill. His lithium was increased a second time on 08/10/23 for low therapeutic level and he understands will require ongoing monitoring. A family session was held and safety plan was completed prior to discharge. He also had a meeting with [facility]. His lacerations to neck and wrist were well healed and remained intact and without evidence of infection following suture removal. His borderline personality traits were discussed in detail. Given his age and current level of depression I did not formalize the diagnosis but this most likely explains the refractory nature of his depression, though cultural factors should also be considered. He did require PO prn Ativan and unlocked seclusion on 08/10/23 for SIB (non injurious head banging). During his episode he was not dissociative and re sponded to prompting. He has since processed the episode and his behavior with his sweatshirt was not a suicide attempt. He was angry with staff as his perception was his pain was being minimized. His behavior has been appropriate since and he's interacted well with his mother who is comfortable at this point traveling with him to [place] to stay with extended family. Mike requested discharge in am of 08/11/23 but never formally submitted a 72 hr. notice. Reviewed that his concerns are chronic and he felt ongoing inpatient stay was counter-therapeutic. As there was no evidence of active SI/psychosis, etc interfering with his decision making and he was attending to all routine self-care, there was no indication for involuntary hospitalization. He did develop a mild rash and swelling of his right eye without discharge or scleral injection the pm prior to discharge. If was very localized and responded well to benadryl. He was directed to try Mederma scar cream for his wrist OTC. Day of Discharge Assessment Today the patient voices readiness for discharge. They note improvement in mood and deny thoughts to harm self or others. Thoughts remain organized and they are improved from admission. There is no evidence of psychosis. They agree to take mediations as prescribed and keep follow-up appointments. They are stable for discharge to outpatient level of care. Mike was actually smiling and discussing future travel plans as reviewed his transition of care plan. He was thankful for the attention he received and very conversational about soccer, etc. He understood that his [place] had not yet been approved despite appeal and not an immediate treatment option as relocating. Transition of Care Transition Of Care Record: was reviewed with the patient Advance Directives Advance Directives Information Provided: Yes Advance Directives: No Mental Health Advance Directive: No Advance Directives on File: No Living Will: No Power of Payable Representative: No Advance Directives Reason:: Declines as Mental Health Visit. Risk Factors Assessment Male: Yes : No Do You Have Access To A Gun?: No (will confirm again before d/c) Health Problems: No Mental Health Diagnoses: Yes Substance Use Disorders: No Previous Attempt: Yes Previous Psychiatric Hospitalization: Yes Protective Factors Assessment Employed: No Supportive Family: Yes Good Rapport with Provider: Yes Tobacco Cessation at Discharge Tobacco Cessation Medication Prescribed at Discharge: Not Applicable/Non-Smoker Total Time Total Time Spent: Greater Than 30 Minutes (55 min) Total Time Includes: Examination of the patient, Discharge Planning and Medication Reconciliation Discharge Data Lab Results 08/02/23 08/02/23 08/02/23 22:44 22:44 22:44 WBC RBC Hgb Hct MCV MCH MCHC RDW Std Deviation RDW Coeff of Annika Plt Count MPV Immature Gran % (Auto) Neut % (Auto) Lymph % (Auto) [place] % (Auto) Eos % (Auto) Baso % (Auto) Neut # (Auto) Lymph # (Auto) [place] # (Auto) Eos # (Auto) Baso # (Auto) Immature Gran # (Auto) Sodium Potassium Chloride Carbon Dioxide Anion Gap BUN Creatinine Est Cr Clr Drug Dosing Est GFR ( Amer) Est GFR (Non-Af Amer) BUN/Creatinine Ratio Glucose Calcium Total Bilirubin AST ALT Alkaline Phosphatase Total Protein Albumin Globulin Albumin/Globulin Ratio TSH Urine Color Dark Yellow Urine Appearance Clear Urine pH 5.5 Ur Specific [place] 1.035 H Urine Protein Trace H Urine Glucose (UA) Negative Urine Ketones Trace H Urine Blood Negative Urine Nitrite Negative Urine Bilirubin Negative Urine Urobilinogen Negative Ur Leukocyte Esterase Negative Urine WBC (Auto) 1-5 Urine RBC (Auto) 0-4 U Hyaline Cast (Auto) 1-5 U Epithel Cells (Auto) 5-10 H Urine Bacteria (Auto) Negative Salicylates Urine Opiates Screen Neg Ur Methadone, Qual Neg Acetaminophen Urine Barbiturates Neg Ur Phencyclidine (PCP) Neg U Amphetamines Confirm U Amphetamin/Meth Scrn Pos H U Methamphetamin Confrm MDMA (Ecstasy) Screen Neg U Benzodiazepines Scrn Neg Lequire Ur Cocaine Metabolite Neg U Marijuana (THC) Screen Neg Drug Screen Comment Ethyl Alcohol mg/dL SARS-CoV-2, RNA, NAAT NEGATIVE 08/02/23 08/02/23 08/02/23 22:44 22:49 22:49 WBC 6.05 RBC 4.49 L Hgb 12.9 L Hct 38.7 L MCV 86.2 MCH 28.7 MCHC 33.3 RDW Std Deviation 38.8 RDW Coeff of Annika 12.2 Plt Count 320 MPV 9.5 Immature Gran % (Auto) 0.2 Neut % (Auto) 49.2 Lymph % (Auto) 35.9 [place] % (Auto) 12.6 Eos % (Auto) 1.8 Baso % (Auto) 0.3 Neut # (Auto) 2.98 Lymph # (Auto) 2.17 [place] # (Auto) 0.76 H Eos # (Auto) 0.11 Baso # (Auto) 0.02 Immature Gran # (Auto) 0.01 Sodium 140 Potassium 3.5 Chloride 108 H Carbon Dioxide 26 Anion Gap 6 BUN 10 Creatinine 0.82 Est Cr Clr Drug Dosing 175.0 Est GFR ( Amer) 147.5 Est GFR (Non-Af Amer) 127.3 BUN/Creatinine Ratio 12.2 Glucose 84 Calcium 9.9 Total Bilirubin 0.3 AST 25 ALT 19 Alkaline Phosphatase 166 H Total Protein 7.9 Albumin 4.5 Globulin 3.4 Albumin/Globulin Ratio 1.3 TSH 1.065 Urine Color Urine Appearance Urine pH Ur Specific [place] Urine Protein Urine Glucose (UA) Urine Ketones Urine Blood Urine Nitrite Urine Bilirubin Urine Urobilinogen Ur Leukocyte Esterase Urine WBC (Auto) Urine RBC (Auto) U Hyaline Cast (Auto) U Epithel Cells (Auto) Urine Bacteria (Auto) Salicylates Urine Opiates Screen Ur Methadone, Qual Acetaminophen Urine Barbiturates Ur Phencyclidine (PCP) U Amphetamines Confirm >58658 H U Amphetamin/Meth Scrn U Methamphetamin Confrm NEGATIVE MDMA (Ecstasy) Screen U Benzodiazepines Scrn Lequire Ur Cocaine Metabolite U Marijuana (THC) Screen Drug Screen Comment SEE NOTE Ethyl Alcohol mg/dL SARS-CoV-2, RNA, NAAT 08/02/23 08/02/23 08/09/23 22:49 22:49 07:28 WBC RBC Hgb Hct MCV MCH MCHC RDW Std Deviation RDW Coeff of Annika Plt Count MPV Immature Gran % (Auto) Neut % (Auto) Lymph % (Auto) [place] % (Auto) Eos % (Auto) Baso % (Auto) Neut # (Auto) Lymph # (Auto) [place] # (Auto) Eos # (Auto) Baso # (Auto) Immature Gran # (Auto) Sodium Potassium Chloride Carbon Dioxide Anion Gap BUN Creatinine Est Cr Clr Drug Dosing Est GFR ( Amer) Est GFR (Non-Af Amer) BUN/Creatinine Ratio Glucose Calcium Total Bilirubin AST ALT Alkaline Phosphatase Total Protein Albumin Globulin Albumin/Globulin Ratio TSH Urine Color Urine Appearance Urine pH Ur Specific [place] Urine Protein Urine Glucose (UA) Urine Ketones Urine Blood Urine Nitrite Urine Bilirubin Urine Urobilinogen Ur Leukocyte Esterase Urine WBC (Auto) Urine RBC (Auto) U Hyaline Cast (Auto) U Epithel Cells (Auto) Urine Bacteria (Auto) Salicylates < 3.0 L Urine Opiates Screen Ur Methadone, Qual Acetaminophen 8 L Urine Barbiturates Ur Phencyclidine (PCP) U Amphetamines Confirm U Amphetamin/Meth Scrn U Methamphetamin Confrm MDMA (Ecstasy) Screen U Benzodiazepines Scrn Lequire 0.1 L 0.5 L Ur Cocaine Metabolite U Marijuana (THC) Screen Drug Screen Comment Ethyl Alcohol mg/dL < 10.0 SARS-CoV-2, RNA, NAAT Hospital Course (1) Suicide attempt: (2) Laceration of neck: (3) Major depressive disorder with current active episode: (4) ADHD: (5) Generalized anxiety disorder with panic attacks: Plan 08/11/2023: needs family meeting 08/10/2023: patient agreed to titrate lithium. 08/09/2023: sutures removed, Lequire 0.5, consider increase. 08/08/2023: add vitamin D for hx of deficiency and time of year, repeat lithium level in am. 08/07/2023: -Continue current medications and tx plan. 08/06/2023: -Continue current medications and tx plan. 08/05/2023: -Increase Adderall XR to 40mg tomorrow morning 08/04/2023: -Increase Lequire to 300mg qd and 600mg HS (recheck Li level in 5 days) 08/03/2023: The patient was admitted to the [facility] ([facility] mental health unit) on q15 min checks (behavioral with suicide precautions) for safety. The patient will participate in group, recreational, and milieu therapies and will be offered additional individual and family sessions as clinically appropriate. -Continue mirtazapine 15mg HS, Adderall XR 20mg daily, Lequire 300mg BID -[place] BPD questionnaire -Mood Disorder questionnaire -Will reach out to his outpatient psychiatric provider for further recent collateral -Suture removal in approximately 7 days Mental Health & Subst Abuse Tx Psychiatrist Name of Psychiatrist: PLEASE FOLLOW UP WHEN YOU RELOCATE TO OBTAIN PROVIDER Therapist Name of Therapist: PLEASE FOLLOW UP WHEN YOU RELOCATE TO OBTAIN PROVIDER Job Placement Counselor Name of Job Placement Counselor: [facility] Phone Number for Job Placement Counselor: [phone] Case Management Appointment Comment: Zoom link will be sent to [facility] email Job Placement Counselor Release of Information: Obtained, Reviewed and Signed Post Discharge Appointments Primary Care Physician Name Of Family Doctor/PCP: PLEASE FOLLOW UP WHEN YOU RELOCATE TO OBTAIN PROVIDER Smoking Cessation Counseling Tobacco Cessation Medication Prescribed at Discharge: Not Applicable/Non-Smoker Other #1: Name of Aftercare Appointment: [facility]- WILL BE NOTIFIED ABOUT RELOCATION Phone Number of Aftercare Appointment: [phone] Release of Information Aftercare Appointment: Obtained, Reviewed and Signed #2: Name of Aftercare Appointment: [facility]- WILL BE NOTIFIED ABOUT RELOCATION Phone Number of Aftercare Appointment: OPTIONAL: FOLLOW UP DIRECTLY TO DISCUSS SERVICES ENDING Contact Information Discharge Discharge Plan Discharge Items Patient Disposition: Home - Self-Care Reason For Visit: UNSPECIFIED DEPRESSIVE DISORDER Discharge Diagnosis: major depressive disorder Activity: Resume your previous activity Non-emergency contact: Primary Care Provider and Psychiatrist Call non-emergency contact if: you have any medication questions and your symptoms worsen Follow-up/Referrals: [facility] [Primary Care Provider] - Diet: Regular Addtl Attending Provider Instructions: SPECIAL CARE INSTRUCTIONS: 1. Follow through with your scheduled aftercare appointments. If unable to keep an appointment, please call to reschedule. 2. Take your medication only as prescribed. Medication should not be changed or stopped without the approval of your doctor. In the event of worsening symptoms or concerns about side effects, contact your doctor immediately. 3. Utilize new healthy coping skills, anger management skills, and stress management skills learned during your hospitalization. Journal feelings and process them with a support person. Identify stressors or situations that may result in relapse, deterioration or inappropriate behaviors and develop a plan to deal with those issues. 4. If your coping skills are ineffective and you are in crisis, contact your outpatient providers for direction. If unable to reach your providers, please call the [facility] CRISIS LINE AT , go to the [facility] walk-in center at [address], [address], [place], or go to the closest Emergency Room. 5. Avoid alcohol and un-prescribed drugs. 6. You have been provided with the Mental Health Advance Directives Pamphlet for your review. 7. Your condition is stable for discharge to outpatient level of care, but recovery is an ongoing process. Ifthoughts to harm yourself or others return, follow the safety plan developed during your stay. Planning for a safe return home includes securing weapons. Our treatment team recommends weaponsbe removed from the home until your outpatient provider reassesses your progress. In rare cases where the items themselvescannot be removed, guns and ammunitionshould be secured separatelyand keys stored by a reliable personoutside of the home. If you were admitted on an involuntary commitment, the police or other legal authorities may be involved in this process. AFTERCARE APPOINTMENTS: * Please call your insurance company prior to your scheduled appointment to confirm your aftercare providers are covered. Take your insurance information to your appointments. WHO TO CALL AND WHEN: Medical Emergencies: For questions or emergencies related to your hospital stay, please contact the Inpatient Behavioral Health Unit at [phone]. A alfalfa dehydrator operator is on-call 25/05 for the Behavioral Health Unit for emergencies At any time you feel your situation is an emergency, you may also call 911 immediately. Pending Studies at Discharge: No Stand-Alone Forms: My [facility], Smoking Cessation Medications and DC Order Prescriptions: New Anti-Itch(diphenhyd) with Zinc 2-0.1 % Cream 1 applic EXT Q6 PRN (Reason: itching) Qty: 15 0RF lithium carbonate 300 mg Tablet 600 mg PO BID 30 Days Qty: 120 0RF cholecalciferol (vitamin D3) 25 mcg (1,000 unit) Capsule 1,000 unit PO QAM Qty: 30 0RF Cerovite Senior 0.4 mg-300 mcg- 250 mcg Tablet 1 tab PO QAM Qty: 30 0RF dextroamphetamine-amphetamine [Adderall XR] 30 mg capsule,extended release 24hr 30 mg PO QAM Qty: 30 0RF Continued mirtazapine 15 mg tablet 15 mg PO DAILY Qty: 30 0RF Discontinued clonazepam 0.5 mg tablet 0.5 mg PO BID PRN (Reason: Anxiety) dextroamphetamine-amphetamine [Adderall XR] 20 mg capsule,extended release 24hr 20 mg PO DAILY lithium carbonate 300 mg capsule 300 mg PO BID Trintellix 20 mg Tablet 20 mg PO DAILY Discharge Orders: Discharge Order (Routine); Ordered 08/12/23 Ordered By: Christine Malik Admission Data Admit Date/Time: 08/03/23 01:11 Attending Provider: Christine Malik Admit Provider: Agnes Mcclain Primary Care Provider: [facility] Other Interventions: Discharge Summary Assessment (RN) Last Done: 08/12/23 12:19 PSY Interdisciplinary Discharge Planning Last Done: 08/12/23 13:22 Coding Level of Care Code 41413 D/C day mgmt > 30 min Diagnoses Suicide attempt T14.91XA Laceration of neck S11.91XA Encounter type: initial encounter Major depressive disorder with current active episode F33.2 Major depression episode severity: severe Major depression recurrence: recurrent Psychotic features: without psychotic features ADHD F90.9 Generalized anxiety disorder with panic attacks F41.1; F41.0
== END 2023-08-12 13:41 | disposition home or self-care (01) | DRG 885 ==
LOC: ED 22:18 → SUATTDRO 08-03 01:11 → 3S 08-03 01:11 → ED 08-03 01:27 → 3S 08-10 11:44